=== PATIENT | female | born 1985 | race Caucasian/White ===

== ENCOUNTER 2017-10-11 01:44 | Emergency (ER) | payer MEDICAID, SELFPAY ==
[2017-10-11 01:48] VITALS: BP 111/76; PULSE 69; RESP 16; TEMP 36.8; O2SAT 100; BMI 38.1
--- NOTE | 2017-10-11 02:08 | ED.DCSUM_ITS ---
- ER Visit Summary Date of Service: 10/11/17 Chief Complaint: [] Dental pain History of Present Illness: The patient is a 31 F [] planing of worsening dental pain for the last 2-3 months. Denies fevers. Physical Examination: [] HEENT: Reveals dental caries without obvious abscess. There is tenderness on the front central incisors. Remainder of exam is unremarkable. Test Results: [] None. Emergency Department Course and Treatment: [] Patient given penicillin orally in the emergency department for her concern for possible dental infection. No obvious abscess is identified. Patient was given Ultram 50 mg #8 for analgesia until she can see her dentist. Treatment Plan: [] Outpatient prescriptions for penicillin and Ultram. Dental follow-up. Disposition: [] Discharge, stable Impression: [] Odontalgia Dental caries This note was generated with [employer] dictation software. It may contain incorrect words, spelling, and punctuation that were not noted in review of the chart prior to signing ED Disposition - Plan for ED Patient: Chief Complaint: Dental Referrals: Rayna Loera [Primary Care Provider] -
--- NOTE | 2017-10-11 02:08 | ED.DEP ---
ED Disposition - Plan for ED Patient: Disposition: Home or Assisted Living Chief Complaint: Dental Instructions: ED Tooth Pain Prescriptions: traMADol [Ultram (G)] 50 mg PO Q6H PRN PRN #8 tab PRN Reason: Pain Penicillin V Potassium 500 mg PO 4X/DAY #40 tab Referrals: Rayna Loera [Primary Care Provider] -
[2017-10-11 02:24] VITALS: RESP 16
[2017-10-11] MEDS: Penicillin Vk 250 MG Tablet 500 MG PO (02:24)
== END 2017-10-11 02:25 | disposition home or self-care (01) ==
LOC: ED 02:16
PROVIDERS: Emergency Provider Emergency Medicine; Family Provider Family Medicine
DX: K08.89 Other specified disorders of teeth and supporting structures (principal); K02.9 Dental caries, unspecified; J45.909 Unspecified asthma, uncomplicated; K21.9 Gastro-esophageal reflux disease without esophagitis; Z79.899 Other long term (current) drug therapy; Z72.0 Tobacco use
CPT/HCPCS: 99283

== ENCOUNTER 2017-11-05 12:04 | Emergency (ER) | payer MEDICAID, SELFPAY ==
[2017-11-05 12:04] VITALS: BP 131/71; PULSE 90; RESP 16; TEMP 36.5; O2SAT 97; BMI 38.0
--- NOTE | 2017-11-05 12:13 | CT_ITS ---
STUDY: CT ABDOMEN AND PELVIS WITHOUT CONTRAST REASON FOR EXAM: Female, 31 years old. Abdominal pain. RADIATION DOSAGE (If Supplied By Facility): CTDIvol = ( 22.12 ) mGy, DLP = ( 1072.20 ) mGycm TECHNIQUE: Transaxial images were obtained from the dome of the diaphragm to the symphysis pubis without oral contrast, and without intravenous contrast. Sagittal and coronal images were reconstructed. Individualized dose optimization techniques were used for this CT. COMPARISON: None. FINDINGS: The visualized lung bases are unremarkable. The visualized portions of the heart are within normal limits. Normal liver. Normal gallbladder and extrahepatic biliary system. Normal spleen. Normal pancreas. Normal bilateral adrenal glands. Normal right kidney. Normal left kidney. There is a small hiatal hernia. Normal small intestine. Normal colon. The appendix is visualized and appears normal. Normal abdominal aorta. Normal inferior vena cava. There is borderline retroperitoneal lymphadenopathy with enlarged nodes no greater than 10mm in the short axis diameter. Normal urinary bladder. Findings suggestive of a 3.1 cm x 2.7 cm left ovarian cyst. Normal abdominal wall. Small bilateral benign appearing inguinal lymph nodes. Normal osseous structures. CT/Abdomen/Pelvis without Cont IMPRESSION: Findings suggestive of a 3.1 cm x 2.7 cm left ovarian cyst. Electronically Signed: Dustin Murphy MD at 13:31 EDT Tel [phone], Service support ,
[2017-11-05 12:32] LABS: Bacteria 0 SEEN /hpf (None Seen); Mucous, Urine 0 SEEN /hpf (<or=2+); Red Blood Cells-Urine 0 SEEN /hpf (0-5); White Blood Cells 0 SEEN /hpf (0-5)
[2017-11-05] MEDS: 0.9% Normal Saline 1,000 ML 125 ML IV (12:33)
[2017-11-05 12:34] LABS: Color, Urine Yellow (Yellow); Glucose, Dipstick Normal (Normal); Ketone-Dipstick Negative (Negative); Leukocyte Esterase-Dipstick 25 /ul (Negative); Nitrite-Dipstick Negative (Negative); Occult Blood-Urine 10 /ul (Negative); Protein-Dipstick Negative (Negative); Specific Gravity, Urine 1.005 (1.002-1.030); Urine Bilirubin Dipstick Negative (Negative); Urine Clarity Clear (Clear); Urine Urobilinogen Normal (Normal)
[2017-11-05 12:36] LABS: Absolute Lymphocyte Count 2.87 X10^3/ul (0.83-4.51); Absolute Neutrophil Count 6.6 X10^3/uL (2.0-7.7); Basophil# 0.02 X10^3/uL; Basophil% 0.2 % (0-1); Eosinophil# 0.09 X10^3/uL; Eosinophils% 0.9 % (0-5); Hemoglobin 13.6 g/dl (12.0-15.0); Lymphocyte # 2.87 X10^3/ul (4.0); Lymphocyte % 27.9 % (19-41); Mean Corp Hgb Conc 33.2 g/gl (32-36); Mean Corpuscular Hgb 30.7 pg (27.0-32.0); Mean Corpuscular Volume 92.6 fL (81-99); Mean Platelet Vol. 10.8 fl (6.2-12.0); Monocyte# 0.65 X10^3/uL; Monocyte% 6.3 % (0-10); Neutrophil # 6.62 X10^3/uL (2.7-7.7); Neutrophil % 64.5 % (47-70); POSITIVE COUNT NO; POSITIVE DIFFERENTIAL NO; POSITIVE MORPHOLOGY NO; Platelet Count 257 K/mm3 (150-450); RBC Distribution Width CV 12.3 % (11.6-14.6); RBC Distribution Width SD 41.8 fl (35.1-43.9); Red Blood Count 4.43 M/mm3 (4.2-5.4); White Blood Count 10.3 K/mm3 (4.4-11.0)
[2017-11-05 12:40] LABS: Squamous Epithelial Cells - UA 0-5 SEEN /hpf (5-10)
[2017-11-05 12:52] LABS: ALB/GLOB Ratio 0.8 RATIO (0.9-2.4); AST(SGOT) 8 U/L (15-37); Alanine Aminotransfer ALT/SGPT 15 U/L (13-56); Albumin, Serum 3.3 g/dL (3.2-5.0); Alkaline Phosphatase 54 U/L (45-117); Anion Gap 4 (5-15); BUN 5 mg/dL (7-18); BUN/Creat Ratio 6.4 RATIO (10-20); Calcium,Total 8.6 mg/dL (8.5-10.1); Chloride 108 mmol/L (98-107); Creatinine, Serum 0.78 mg/dL (0.55-1.02); EST Glomerular Filtration Rate 92 mL/min (>60); Est Glom Filt Rate - Afr Amer 111 mL/min (>60); Estimated Creatinine Clearance 80.31 ml/min; Globulin 3.9 g/dL (2.2-4.2); Glucose 109 mg/dL (74-106); Lipase 76 U/L (73-393); Potassium 4.2 mmol/L (3.5-5.1); Protein, Total 7.2 g/dL (6.4-8.2); Sodium Level 139 mmol/L (136-145)
[2017-11-05 12:58] LABS: Pregnancy, Serum, hCG Quali. NEGATIVE Negative (0-9 Nonpreg)
--- NOTE | 2017-11-05 13:57 | ED.VISSUMM ---
- ER Visit Summary Date of Service: 11/05/17 Chief Complaint: [Abdominal pain] History of Present Illness: The patient is a 31 F [presents to the emergency department complaint of abdominal pain that started around 10 PM last night. Patient rates her pain currently as a 5 out of 10. Patient's had nausea but no vomiting denies any diarrhea. Denies any blood in her stool or black tarry stool. Patient's last bowel movement was last night. Her last menstrual period was 2 weeks ago. Food does not seem to affect her pain at all. Patient states that she has felt very hot all night last night. Patient denies any chest pain or shortness of breath. Patient does have a history of COPD and asthma.] Physical Examination: [HEENT-PERRLA, EOMI. Cranial nerves II through XII grossly intact. TMs clear. Mucous membranes moist. No adenopathy. Cardiovascular-regular rate and rhythm without murmur or ectopy Lungs-clear to auscultation, chest wall stable without crepitus or subcu emphysema Abdomen-normoactive bowel sounds, soft. Patient has some mild diffuse tenderness to the right upper quadrant and right lower quadrant as well as the left upper quadrant. Patient has some mild tenderness over left lower quadrant. There is no rebound, rigidity, or perineal signs. Extremities-intact ?4, normal range of motion, normal pulses, atraumatic] Test Results: [CBC with differential obtained was normal. Chemistries were normal. LFTs were normal. Lipase was 76. Urinalysis was normal. HCG was negative. CT scan of the abdomen and pelvis without contrast obtained showed a 3.1 cm x 2.7 cm left ovarian cyst otherwise she was noted to have a normal appendix and gallbladder and nothing else significant.] Emergency Department Course and Treatment: [Patient did not anything for pain in the emergency department.] Treatment Plan: [Patient will be given a prescription for [place] for pain and advised to follow-up with her primary care physician 3-5 days.] Disposition: [Discharged to home in stable condition. Patient advised to return if worsening pain, fever, vomiting, or condition should worsen in any way.] Impression: [Abdominal pain Left ovarian cyst] This note was generated with [employer] dictation software. It may contain incorrect words, spelling, and punctuation that were not noted in review of the chart prior to signing ED Disposition - Plan for ED Patient: Chief Complaint: Abd Pain Referrals: Rayna Loera [Primary Care Provider] -
--- NOTE | 2017-11-05 14:01 | DCINST.ED_ITS ---
ED Disposition - Plan for ED Patient: Chief Complaint: Abd Pain Instructions: ED Abdominal Pain Unkn Cause, ED Cyst Ovarian Prescriptions: Hydrocodone Bitart/Apap 5-325 [[place] 5MG-325MG] 1 tab PO Q4H PRN PRN 2 Days #10 tab PRN Reason: Pain Referrals: Rayna Loera [Primary Care Provider] - 3-5 Days
[2017-11-05 14:02] VITALS: BP 121/90; PULSE 75; RESP 15; O2SAT 94
== END 2017-11-05 14:07 | disposition home or self-care (01) ==
PROVIDERS: Emergency Provider Emergency Medicine; Family Provider Family Medicine
DX: N83.202 Unspecified ovarian cyst, left side (principal); R10.32 Left lower quadrant pain; R61 Generalized hyperhidrosis; J44.9 Chronic obstructive pulmonary disease, unspecified; Z72.0 Tobacco use
CPT/HCPCS: 74176; 80053; 81001; 83690; 84703; 85025; 96360; 99282

== ENCOUNTER 2017-12-16 20:26 | Emergency (ER) | payer MEDICAID, SELFPAY ==
[2017-12-16 20:26] VITALS: BP 131/74; PULSE 106; RESP 14; TEMP 35.7; O2SAT 94; BMI 36.1
--- NOTE | 2017-12-16 20:38 | ED.VISSUMM ---
- ER Visit Summary Date of Service: 12/16/17 Chief Complaint: Back pain History of Present Illness: The patient is a 32 F presents with lumbar back pain that radiates into her thoracic back with bending forward. It started 2 days ago when she was moving heavy boxes. She is moving into a new home and has been doing a lot of lifting, bending, and moving of furniture. She does not recall any specific direct trauma and she did not fall but it did start while she was lifting things. She denies bowel or bladder dysfunction. Denies groin paresthesias. Denies fever or chills. Denies lower extremity weakness or headache. It is worse with bending forward and better when laying flat. It is currently mild in severity. Physical Examination: She has paraspinal lumbar tenderness bilaterally but no midline spinal tenderness, erythema, or fluctuance. She has normal strength and sensation in both lower extremities. Negative Babinski's. No clonus. Minimal lower thoracic paraspinal tenderness but no bony tenderness anywhere. Painless range of motion of her cervical spine. Neurologic exam is completely normal. She can walk without difficulty. Test Results: None performed Emergency Department Course and Treatment: She was medicated with naproxen and Flexeril here. The pain seems muscular skeletal in nature and is easily reproducible on exam. She has no midline tenderness, erythema, or fluctuance. No evidence of cauda equina syndrome or paraspinal/epidural abscess. Neurologic exam is normal. I do not feel an emergent MRI is indicated Treatment Plan: He will be prescribed a Medrol Dosepak, naproxen, and Flexeril at home. She will follow-up with her doctor and return here if worse. Disposition: Home stable condition Impression: Initial encounter lumbar strain This note was generated with [employer] dictation software. It may contain incorrect words, spelling, and punctuation that were not noted in review of the chart prior to signing ED Disposition - Plan for ED Patient: Chief Complaint: Back Instructions: ED Low Back Pain Injury Prescriptions: MethylPREDNISolone DosePak [Medrol DosePak] 4 mg PO UD #1 box Naproxen [Naprosyn] 500 mg PO BID PRN #20 tablet Cyclobenzaprine [Flexeril] 10 mg PO TID PRN #20 tablet PRN Reason: Muscle Spasm Referrals: Rayna Loera [Primary Care Provider] -
[2017-12-16 21:07] VITALS: BP 138/60; PULSE 78; RESP 16; O2SAT 96
== END 2017-12-16 21:08 | disposition home or self-care (01) ==
PROVIDERS: Emergency Provider Emergency Medicine; Family Provider Family Medicine
DX: S39.012A Strain of muscle, fascia and tendon of lower back, initial encounter (principal); X58.XXXA Exposure to other specified factors, initial encounter; Y93.9 Activity, unspecified; Y92.9 Unspecified place or not applicable; Z72.0 Tobacco use
CPT/HCPCS: 99283

== ENCOUNTER 2017-12-29 09:54 | Emergency (ER) | payer MEDICAID, SELFPAY ==
[2017-12-29 09:55] VITALS: BP 126/79; PULSE 100; RESP 18; TEMP 37.1; O2SAT 97; BMI 35.1
--- NOTE | 2017-12-29 10:13 | ED.VISSUMM ---
- ER Visit Summary Date of Service: 12/29/17 Chief Complaint: Constipation History of Present Illness: The patient is a [address] Loera at [facility]. She reports that she has not had a bowel movement for 2 or 3 days. Typically she goes daily. States that yesterday she took 2 stool softeners and drank approximately 1/5 of a bottle of magnesium citrate without relief. Patient reports that she has an aching upper abdominal pain is 9 out of 10 at worst and 710 currently. Is worsened by nothing relieved by remaining still. She has had nausea without vomiting. She denies any dysuria or frequency. Her last menstrual period was 3 weeks ago. Physical Examination: Vitals: Stable. Afebrile. General: Well-nourished and well-developed. Head: Normocephalic atraumatic. Neck: Supple, no lymphadenopathy. No JVD. Nontender. Cardiovascular: Regular rate and rhythm. No murmurs. Respiratory: No respiratory distress. Clear to auscultation bilaterally. Abdominal: Soft, minimal epigastric tenderness to palpation, nondistended, normal bowel sounds. No guarding, rebound, or peritoneal signs. Back: Nontender. Extremities: Nontender, no edema. Skin: Normal color, no rash. Neurologic: Alert and oriented ?3. Cranial nerves II through XII are intact. Normal strength and sensation. Psych: Normal affect. Emergency Department Course and Treatment: I had a prolonged discussion the patient about constipation causes and treatment. She has refused a enema. Treatment Plan: Patient will be discharged instructions to complete her bottle of magnesium citrate. Return to emergency department or follow with her primary care physician in 1-2 days if she has not had a bowel movement or for any other concerns. Disposition: To home in improved and stable condition. Impression: 1. Constipation. This note was generated with [employer] dictation software. It may contain incorrect words, spelling, and punctuation that were not noted in review of the chart prior to signing ED Disposition - Plan for ED Patient: Chief Complaint: Constipation Instructions: ED Constipation Referrals: Rayna Loera [Primary Care Provider] - 1-2 Days if not improving
--- NOTE | 2017-12-29 10:16 | ED.DCSUM_ITS ---
- ER Visit Summary Date of Service: 12/29/17 Chief Complaint: Constipation History of Present Illness: The patient is a [address] Loera at [facility]. She reports that she has not had a bowel movement for 2 or 3 days. Typically she goes daily. States that yesterday she took 2 stool softeners and drank approximately 1/5 of a bottle of magnesium citrate without relief. Patient reports that she has an aching upper abdominal pain is 9 out of 10 at worst and 710 currently. Is worsened by nothing relieved by remaining still. She has had nausea without vomiting. She denies any dysuria or frequency. Her last menstrual period was 3 weeks ago. Physical Examination: Vitals: Stable. Afebrile. General: Well-nourished and well-developed. Head: Normocephalic atraumatic. Neck: Supple, no lymphadenopathy. No JVD. Nontender. Cardiovascular: Regular rate and rhythm. No murmurs. Respiratory: No respiratory distress. Clear to auscultation bilaterally. Abdominal: Soft, minimal epigastric tenderness to palpation, nondistended, normal bowel sounds. No guarding, rebound, or peritoneal signs. Back: Nontender. Extremities: Nontender, no edema. Skin: Normal color, no rash. Neurologic: Alert and oriented ?3. Cranial nerves II through XII are intact. Normal strength and sensation. Psych: Normal affect. Emergency Department Course and Treatment: I had a prolonged discussion the patient about constipation causes and treatment. She has refused a enema. Treatment Plan: Patient will be discharged instructions to complete her bottle of magnesium citrate. Return to emergency department or follow with her primary care physician in 1-2 days if she has not had a bowel movement or for any other concerns. Disposition: To home in improved and stable condition. Impression: 1. Constipation. This note was generated with [employer] dictation software. It may contain incorrect words, spelling, and punctuation that were not noted in review of the chart prior to signing ED Disposition - Plan for ED Patient: Chief Complaint: Constipation Instructions: ED Constipation Referrals: Rayna Loera [Primary Care Provider] - 1-2 Days if not improving
--- NOTE | 2017-12-29 10:48 | ED.RN ---
1020: After Dr. Brito's examination, this RN was going in to room and PT was not in room. Checked both bathrooms and she was not there. Registration was asking for pt as well, PT not in room. Assessment not able to get done d/t PT leaving prior to discharge instructions. No orders placed by Dr. Brito.
== END 2017-12-29 10:30 | disposition home or self-care (01) ==
LOC: ED 10:21
PROVIDERS: Emergency Provider Emergency Medicine; Family Provider Family Medicine
DX: K59.00 Constipation, unspecified (principal); R11.0 Nausea; J44.9 Chronic obstructive pulmonary disease, unspecified; Z79.899 Other long term (current) drug therapy; F17.200 Nicotine dependence, unspecified, uncomplicated
CPT/HCPCS: 99282

== ENCOUNTER 2018-01-15 22:46 | Emergency (ER) | payer MEDICAID, SELFPAY ==
[2018-01-15 22:47] VITALS: BP 133/88; PULSE 87; RESP 16; TEMP 36.5; O2SAT 97; BMI 39.6
--- NOTE | 2018-01-15 23:17 | ED.VISSUMM ---
- ER Visit Summary Date of Service: 01/15/18 Chief Complaint: Left foot pain History of Present Illness: The patient is a 32 F presenting with left foot pain. Patient states she has been recently walking a lot. She does not currently have a car. She has been walking 1.5 miles to [place]. She has pain to the bottom of her left foot. She has taken ibuprofen at home. She denies any direct trauma to her foot. Denies other complaints. Physical Examination: Vitals are stable. Patient is afebrile. Alert no acute distress. HEENT exam is unremarkable. Lungs are clear and equal bilaterally. Heart is regular rate and rhythm. Extremities mild tenderness to the plantar surface of the left foot. No erythema or warmth. No swelling. Ankle is nontender. Skin is warm and dry. Remainder of exam is unremarkable. Emergency Department Course and Treatment: Ice pack was applied. Left foot and ankle x-ray are normal. She is given a prescription for Naprosyn. She is given a postop shoe. She is advised to follow-up with primary care physician. Advised to return to ED if worsening complaints. Disposition: Discharged home Impression: Left foot pain suspect plantar fasciitis This note was generated with [employer] dictation software. It may contain incorrect words, spelling, and punctuation that were not noted in review of the chart prior to signing ED Disposition - Plan for ED Patient: Disposition: Home or Assisted Living Chief Complaint: Lower Extremity Injury Instructions: ED Plantar Fasciitis Prescriptions: Naproxen [Naprosyn] 500 mg PO BID PRN #20 tablet Referrals: Rayna Loera [Primary Care Provider] -
--- NOTE | 2018-01-15 23:49 | ED.DEP ---
ED Disposition - Plan for ED Patient: Chief Complaint: Lower Extremity Injury Instructions: ED Plantar Fasciitis Prescriptions: Naproxen [Naprosyn] 500 mg PO BID PRN #20 tablet Referrals: Rayna Loera [Primary Care Provider] -
[2018-01-16 00:02] VITALS: BP 131/78; PULSE 79; RESP 18; O2SAT 99
== END 2018-01-16 00:03 | disposition home or self-care (01) ==
LOC: ED 23:37
PROVIDERS: Emergency Provider Emergency Medicine; Family Provider Family Medicine
DX: M25.572 Pain in left ankle and joints of left foot (principal); J44.9 Chronic obstructive pulmonary disease, unspecified; K21.9 Gastro-esophageal reflux disease without esophagitis; Z79.899 Other long term (current) drug therapy; Z72.0 Tobacco use
CPT/HCPCS: 73610; 73630; 99283

== ENCOUNTER 2018-02-26 20:18 | Emergency (ER) | payer MEDICAID, SELFPAY ==
[2018-02-26 20:18] VITALS: BP 120/84; PULSE 97; RESP 14; TEMP 36.7; O2SAT 98; BMI 34.7
--- NOTE | 2018-02-26 20:34 | EKG12_ITS ---
Test Reason : PALPS Blood Pressure : / mmHG Vent. Rate : 096 BPM Atrial Rate : 096 BPM P-R Int : 168 ms QRS Dur : 074 ms QT Int : 336 ms P-R-T Axes : 046 029 044 degrees QTc Int : 424 ms Normal sinus rhythm Normal ECG Confirmed by RODRIGO LY, HELLEN ([id number]), editorial assistant FLAKITA DAHL ([id number] on 03/01/2018 12:25:38 PM Referred By: Confirmed By:HELLEN WALLACE MD
--- NOTE | 2018-02-26 20:40 | RAD_ITS ---
STUDY: X-RAY CHEST REASON FOR EXAM: Female, 32 years old. Chest pain and palpitations TECHNIQUE: Single AP portable view of the chest. # of Images: 1 COMPARISON: 04/01/2015 FINDINGS: The lungs are clear and expanded. There is no demonstrated pleural abnormality. Normal size heart. Normal mediastinum and joceline. Normal visualized pulmonary arteries. Normal visualized aortic arch and descending thoracic aorta. Normal visualized thoracic spine. Normal visualized ribs, clavicles, and shoulders. There is no demonstrated abnormality of the visualized soft tissue structures of the upper abdomen. RAD/Chest 1 View (Portable) IMPRESSION: Normal x-ray examination of the chest. Electronically Signed: Walker Huerta DO at 20:51 EDT Tel , Service support ,
--- NOTE | 2018-02-26 20:51 | ED.RN ---
NO OLD EKGS IN MUSE.
[2018-02-26 21:09] LABS: Absolute Lymphocyte Count 3.47 X10^3/ul (0.83-4.51); Absolute Neutrophil Count 9.6 X10^3/uL (2.0-7.7); Basophil# 0.02 X10^3/uL; Basophil% 0.1 % (0-1); Eosinophil# 0.07 X10^3/uL; Eosinophils% 0.5 % (0-5); Hematocrit 40.2 % (37-47); Hemoglobin 13.4 g/dl (12.0-15.0); Lymphocyte # 3.47 X10^3/ul (4.0); Lymphocyte % 24.8 % (19-41); Mean Corp Hgb Conc 33.3 g/gl (32-36); Mean Corpuscular Hgb 31.2 pg (27.0-32.0); Mean Corpuscular Volume 93.5 fL (81-99); Mean Platelet Vol. 11.3 fl (6.2-12.0); Monocyte% 5.7 % (0-10); Neutrophil # 9.61 X10^3/uL (2.7-7.7); Neutrophil % 68.7 % (47-70); Platelet Count 231 K/mm3 (150-450); RBC Distribution Width CV 12.7 % (11.6-14.6)
[2018-02-26 21:10] LABS: POSITIVE COUNT NO; POSITIVE DIFFERENTIAL NO; POSITIVE MORPHOLOGY NO
[2018-02-26 21:12] LABS: Anion Gap 7 (5-15); BUN 6 mg/dL (7-18); BUN/Creat Ratio 9.2 RATIO (10-20); Calcium,Total 8.7 mg/dL (8.5-10.1); Chloride 108 mmol/L (98-107); Creatinine, Serum 0.65 mg/dL (0.55-1.02); EST Glomerular Filtration Rate 114 mL/min (>60); Est Glom Filt Rate - Afr Amer 138 mL/min (>60); Glucose 142 mg/dL (74-106); Potassium 3.7 mmol/L (3.5-5.1); Sodium Level 138 mmol/L (136-145)
[2018-02-26 21:20] LABS: Pregnancy, Serum, hCG Quali. NEGATIVE Negative (0-9 Nonpreg)
[2018-02-26 22:00] VITALS: BP 93/54; PULSE 75; RESP 14; O2SAT 96
--- NOTE | 2018-02-26 22:02 | NURSING ---
PT ARRIVES STATING SHE FEELS HER HEART IS ACTING WEIRD. STATES SOMETIMES IT FEELS FAST AND SOMETIMES IT FEELS SLOW. DENIES CP, SOB, NAUSEA, ARM PAIN, JAW PAIN.
--- NOTE | 2018-02-26 22:19 | ED.VISSUMM ---
- ER Visit Summary Date of Service: 02/26/18 Chief Complaint: Palpitations History of Present Illness: The patient is a 32 F who presents with palpitations. This began yesterday. She has no chest pain or shortness of breath. No fevers vomiting or diarrhea. She does note that she has had a URI-like illness for about a month with nasal congestion and cough. She has been taking some [id number] decongestants. She denies any illicit drug use. She denies heavy caffeine use. Physical Examination: Afebrile vitals normal Moist mucous membranes Heart regular rate and rhythm Lungs are clear Abdomen soft Alert Test Results: EKG shows normal sinus rhythm at a rate of 96. Chest x-ray normal. Labs notable for white blood cell count 14.0 otherwise normal. Troponin is negative. is negative. Emergency Department Course and Treatment: Patient is resting comfortably at the time my examination. EKG laboratory studies and chest x-ray are all normal. I advised this may be medication related from the [id number] decongestants she has been taking. She was advised to drink plenty of fluids. She was instructed on specific signs and symptoms to monitor for. She understands to return for new or worsening symptoms and will otherwise follow-up as an outpatient was discharged home. Treatment Plan: [] Disposition: Discharge Impression: Palpitations This note was generated with [employer] dictation software. It may contain incorrect words, spelling, and punctuation that were not noted in review of the chart prior to signing ED Disposition - Plan for ED Patient: Chief Complaint: Palpitations Referrals: Alana Loera MD [Primary Care Provider] -
--- NOTE | 2018-02-26 22:21 | ED.DEP ---
ED Disposition - Plan for ED Patient: Chief Complaint: Palpitations Instructions: ED Palpitations Referrals: Alana Loera MD [Primary Care Provider] - Yumiko Hernandez DO [STAFF PHYSICIAN] -
== END 2018-02-26 22:37 | disposition home or self-care (01) ==
PROVIDERS: Emergency Provider Emergency Medicine; Family Provider Family Medicine; PCP Family Medicine
DX: R00.2 Palpitations (principal); R09.81 Nasal congestion; R05 Cough; J44.9 Chronic obstructive pulmonary disease, unspecified; K21.9 Gastro-esophageal reflux disease without esophagitis; Z72.0 Tobacco use
CPT/HCPCS: 71045; 80048; 84484; 84703; 85025; 93005; 99284; A4216

== ENCOUNTER 2018-02-27 10:29 | Emergency (ER) | payer MEDICAID, SELFPAY ==
[2018-02-27 10:31] VITALS: BP 132/82; PULSE 96; RESP 15; TEMP 36.3; BMI 34.2
--- NOTE | 2018-02-27 10:42 | ED.DCSUM_ITS ---
- ER Visit Summary Date of Service: 02/27/18 Chief Complaint: Right eye drainage and crusting History of Present Illness: The patient is a 32 F with waxing and waning URI symptoms for the past 1 month. Patient states for the past 2 mornings she is woken up with crusting to her right eye. She does have some mild right eye irritation. Physical Examination: Vital signs unremarkable. Head neck examination reveals no eyelid edema or erythema. She has minimal injection to the medial portion of her right eye. Pupils equal and reactive. Extraocular movements fully intact. TMs are clear bilaterally. Posterior pharynx examination is unremarkable. Remainder of exam is normal. Test Results: [] Emergency Department Course and Treatment: Discussed with patient that conjunctivitis can be viral, bacterial, or allergic in nature. At this time she will be given gentamicin eyedrops. She is to continue these for 24 hours after her symptoms are improved. Treatment Plan: [] Disposition: Discharge Impression: Conjunctivitis right eye This note was generated with [employer] dictation software. It may contain incorrect words, spelling, and punctuation that were not noted in review of the chart prior to signing ED Disposition - Plan for ED Patient: Chief Complaint: Eye Problem Referrals: Alana Loera MD [Primary Care Provider] -
--- NOTE | 2018-02-27 10:42 | ED.DEP ---
ED Disposition - Plan for ED Patient: Disposition: Home or Assisted Living Chief Complaint: Eye Problem Instructions: ED Conjunctivitis Nonspecific Referrals: Alana Loera MD [Primary Care Provider] - Additional Instructions: Gentamicin eye drops - 1 drop to affected eye 4x daily until symptoms resolved for 24 hours.
[2018-02-27] MEDS: Gentamicin Sulfate 1 OPTH.BTL 2 DRP RIGHT EYE (11:02)
== END 2018-02-27 11:06 | disposition home or self-care (01) ==
LOC: ED 10:54
PROVIDERS: Emergency Provider Emergency Medicine
DX: H10.9 Unspecified conjunctivitis (principal); J44.9 Chronic obstructive pulmonary disease, unspecified; K21.9 Gastro-esophageal reflux disease without esophagitis; F41.9 Anxiety disorder, unspecified; F32.9 Major depressive disorder, single episode, unspecified; Z79.899 Other long term (current) drug therapy; Z72.0 Tobacco use
CPT/HCPCS: 99282

== ENCOUNTER 2018-02-28 13:31 | Emergency (ER) | payer MEDICAID, SELFPAY ==
[2018-02-28 13:32] VITALS: BP 140/95; PULSE 120; RESP 16; TEMP 36.3; O2SAT 95; BMI 34.2
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
[2018-02-28 15:16] VITALS: BP 129/84; PULSE 76; RESP 16; O2SAT 97
== END 2018-02-28 15:17 | disposition home or self-care (01) ==
PROVIDERS: Emergency Provider Emergency Medicine
DX: S32.10XA Unspecified fracture of sacrum, initial encounter for closed fracture (principal); M79.602 Pain in left arm; M25.512 Pain in left shoulder; Y04.8XXA Assault by other bodily force, initial encounter; Y93.9 Activity, unspecified; Y92.9 Unspecified place or not applicable; J44.9 Chronic obstructive pulmonary disease, unspecified; K21.9 Gastro-esophageal reflux disease without esophagitis; Z79.899 Other long term (current) drug therapy; F17.200 Nicotine dependence, unspecified, uncomplicated
CPT/HCPCS: 72220; 99282

== ENCOUNTER 2018-03-08 17:35 | Emergency (ER) | payer MEDICAID, SELFPAY ==
[2018-03-08 17:35] VITALS: BP 140/85; PULSE 87; RESP 18; TEMP 36.5; O2SAT 96; BMI 34.5
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
[2018-03-08] MEDS: HYDROcodone Bitartrate/Apap 5/325 Tablet PO (17:54)
--- NOTE | 2018-03-08 18:08 | RAD_ITS ---
STUDY: X-RAY - THORACIC SPINE REASON FOR EXAM: Female, 32 years old. Fell last week and fractured tailbone. Fell again and Thursday increasing pain radiating to the upper back. TECHNIQUE: view(s) of the thoracic spine were obtained. COMPARISON: None. FINDINGS: Normal kyphosis of the thoracic spine. There is no substantial scoliosis. Normal thoracic vertebrae and endplates. Normal disc space heights. There is no evidence of acute fracture or loss of vertebral axial height. The soft tissue structures are unremarkable. RAD/Thoracic Spine 2 Views IMPRESSION: Normal x-ray examination of the thoracic spine. Electronically Signed: Shmuel Denny DO at 18:27 EDT Tel [phone], Service support ,
--- NOTE | 2018-03-08 18:08 | RAD_ITS ---
STUDY: X-RAY - LUMBAR SPINE REASON FOR EXAM: Female, 32 years old. Fell last week and fractured tailbone. Fell again Thursday. Increasing pain in the coccyx radiating to the upper back. TECHNIQUE: 3 view(s) of the lumbar spine were obtained. COMPARISON: None FINDINGS: Normal lumbar lordosis. There is no substantial scoliosis. There is a normal alignment of the vertebrae. Normal vertebral bodies and endplates. Normal disc space heights. There is no acute fracture, dislocation or destructive osseous pathology. The coccyx is not included. The soft tissue structures are unremarkable. RAD/Lumbar Spine 2 or 3 Views IMPRESSION: Normal x-ray examination of the lumbar spine. Electronically Signed: Shmuel Denny DO at 18:26 EDT Tel [phone], Service support ,
--- NOTE | 2018-03-08 18:08 | RAD_ITS ---
STUDY: X-RAY - SACRUM/COCCYX REASON FOR EXAM: Female, 32 years old. Fell last week and fractured tailbone. Fell again Thursday with increasing pain radiating into the upper back. TECHNIQUE: 3 view(s) of the sacrum and coccyx were obtained. COMPARISON: Sacrum and coccyx, February 28, 2018. FINDINGS: Normal bilateral sacroiliac joints. Again seen is the step off of the distal sacrum consistent with a fracture noted prior study. There is no new fracture. The presacral soft tissue structures are unremarkable. RAD/Sacrum-Coccyx min 2 Views IMPRESSION: No change from February 28, 2018. Electronically Signed: Shmuel Denny DO at 18:29 EDT Tel [phone], Service support ,
--- NOTE | 2018-03-08 19:35 | ED.DEP ---
ED Disposition - Plan for ED Patient: Disposition: Home or Assisted Living Chief Complaint: Back Instructions: ED Low Back Pain Injury Prescriptions: Hydrocodone Bitart/Apap 5-325 [[place] 5MG-325MG] 1 tab PO Q6H PRN PRN 2 Days #8 tab PRN Reason: Pain Ibuprofen 600 mg PO Q6H PRN PRN #30 tab PRN Reason: Pain Referrals: Care Physician,No Primary [Primary Care Provider] - Guillaume Mcintosh MD [STAFF PHYSICIAN] - As soon as possible Additional Instructions: You had no new fractures on your x-ray. Use ibuprofen as needed for mild to moderate pain and you may use the [place] for severe pain. Please call the primary care doctor on this paperwork or the doctor of your choice to establish care and for follow-up. If you have any worsening of your condition or any new concerning symptoms, please return immediately to the emergency department for another evaluation.
== END 2018-03-08 19:52 | disposition home or self-care (01) ==
PROVIDERS: Emergency Provider Emergency Medicine
DX: S32.10XD Unspecified fracture of sacrum, subsequent encounter for fracture with routine healing (principal); Y09 Assault by unspecified means; M54.5 Low back pain; W01.0XXA Fall on same level from slipping, tripping and stumbling without subsequent striking against object, initial encounter; Y93.9 Activity, unspecified; Y92.9 Unspecified place or not applicable; Z72.0 Tobacco use
CPT/HCPCS: 72070; 72100; 72220; 99283; J7030

== ENCOUNTER 2018-03-13 07:55 | Emergency (ER) | payer MEDICAID, SELFPAY ==
[2018-03-13 07:56] VITALS: BP 94/63; PULSE 86; RESP 19; TEMP 36.6; O2SAT 98; BMI 34.0
--- NOTE | 2018-03-13 08:09 | RAD_ITS ---
STUDY: X-RAY CHEST REASON FOR EXAM: Female, 32 years old. Mid chest pain TECHNIQUE: Single frontal view COMPARISON: February 26, 2018 FINDINGS: The lungs are clear and expanded. There is no demonstrated pleural abnormality. Normal size heart. Normal mediastinum and joceline. Normal visualized pulmonary arteries. Normal visualized aortic arch and descending thoracic aorta. Normal visualized thoracic spine. Normal visualized ribs, clavicles, and shoulders. There is no demonstrated abnormality of the visualized soft tissue structures of the upper abdomen. RAD/Chest 1 View (Portable) IMPRESSION: Normal x-ray examination of the chest. Electronically Signed: Kulwant Humphries DO at 8:32 EDT Tel [phone], Service support ,
--- NOTE | 2018-03-13 08:09 | EKG12_ITS ---
Test Reason : CP Blood Pressure : / mmHG Vent. Rate : 083 BPM Atrial Rate : 083 BPM P-R Int : 176 ms QRS Dur : 080 ms QT Int : 364 ms P-R-T Axes : 043 015 033 degrees QTc Int : 427 ms Normal sinus rhythm Normal ECG Confirmed by NAZARIO LY, AIDEN ([id number]), manager editorial TALITA PARKER ([id number]) on 03/15/2018 3:25:15 PM Referred By: JOHN Confirmed By:AIDEN LANGE MD
[2018-03-13 08:27] LABS: Absolute Lymphocyte Count 4.45 X10^3/ul (0.83-4.51); Absolute Neutrophil Count 9.2 X10^3/uL (2.0-7.7); Basophil# 0.03 X10^3/uL; Basophil% 0.2 % (0-1); Hematocrit 39.2 % (37-47); Lymphocyte # 4.45 X10^3/ul (4.0); Lymphocyte % 29.9 % (19-41); Mean Corp Hgb Conc 33.2 g/gl (32-36); Mean Corpuscular Hgb 31.3 pg (27.0-32.0); Mean Corpuscular Volume 94.2 fL (81-99); Mean Platelet Vol. 11.7 fl (6.2-12.0); Monocyte# 0.89 X10^3/uL; Neutrophil # 9.17 X10^3/uL (2.7-7.7); Neutrophil % 61.7 % (47-70); Platelet Count 218 K/mm3 (150-450); RBC Distribution Width CV 12.5 % (11.6-14.6); RBC Distribution Width SD 42.5 fl (35.1-43.9); Red Blood Count 4.16 M/mm3 (4.2-5.4); White Blood Count 14.9 K/mm3 (4.4-11.0)
[2018-03-13] MEDS: Mag Hydrox/Al Hydrox/Simeth 30 ML UDC PO (08:30)
[2018-03-13] MEDS: 0.9% Normal Saline 1,000 ML 150 ML IV (08:30)
[2018-03-13 08:31] LABS: POSITIVE COUNT NO; POSITIVE DIFFERENTIAL NO; POSITIVE MORPHOLOGY NO
--- NOTE | 2018-03-13 08:34 | CT_ITS ---
STUDY: CTA CHEST REASON FOR EXAM: Female, 32 years old. Sternal chest pain x6 hours. History of COPD, asthma, meth addiction clean since 02/20/2018. RADIATION DOSAGE (If Supplied By Facility): CTDIvol = ( 13.70 ) mGy, DLP = ( 583.59 ) mGycm TECHNIQUE: The examination was performed with the intravenous administration of 75ML ml of Isovue 370 contrast material. Post-processing of the angiographic images was performed, with multiplanar reformation and MIP (maximum intensity projection) reconstruction. Individualized dose optimization techniques were used for this CT. COMPARISON: None. FINDINGS: Normal enhancement of the main pulmonary artery and right and left pulmonary arteries. Normal enhancement of the bilateral peripheral pulmonary arteries. There is no demonstrated pulmonary embolism. Strick artifacts along the right lateral wall of the ascending aorta. No obvious aneurysm. There is no demonstrated aortic dissection. Normal heart and pericardium. Normal mediastinum. Normal hilar regions. Normal visualized trachea and bronchi. The lungs are well inflated. Minimal posterior subpleural infiltrates in the left lower lobe. No suspicious pulmonary nodules. Minimal groundglass infiltrates in the right posterior lung base. Normal pleura. Normal chest wall structures. Normal osseous structures. Normal visualized upper abdomen. CT/CTA Chest W/WO Contrast IMPRESSION: 1. No CTA evidence of pulmonary thromboemboli or thoracic aortic dissection. 2. Limited CTA of the ascending aorta due to extensive streak artifacts in the right lateral wall. 3. Minimal groundglass infiltrates in the right posterior lung base. 4. Minimal posterior subpleural infiltrates in the left lower lobe. 5. No CT evidence of COPD, centrilobular cysts, paraseptal cysts, blebs or bullous emphysema. Electronically Signed: Aristides Roberts MD at 9:25 EDT , Service support ,
[2018-03-13 08:47] LABS: ALB/GLOB Ratio 0.8 RATIO (0.9-2.4); AST(SGOT) 8 U/L (15-37); Alanine Aminotransfer ALT/SGPT 19 U/L (13-56); Albumin, Serum 3.1 g/dL (3.2-5.0); Alkaline Phosphatase 68 U/L (45-117); Anion Gap 8 (5-15); BUN 13 mg/dL (7-18); BUN/Creat Ratio 16.8 RATIO (10-20); Calcium,Total 8.4 mg/dL (8.5-10.1); Chloride 106 mmol/L (98-107); Creatinine, Serum 0.78 mg/dL (0.55-1.02); EST Glomerular Filtration Rate 93 mL/min (>60); Est Glom Filt Rate - Afr Amer 112 mL/min (>60); Estimated Creatinine Clearance 79.58 ml/min; Globulin 3.8 g/dL (2.2-4.2); Glucose 124 mg/dL (74-106); Lipase 77 U/L (73-393); Potassium 3.8 mmol/L (3.5-5.1); Protein, Total 6.9 g/dL (6.4-8.2); Sodium Level 138 mmol/L (136-145)
--- NOTE | 2018-03-13 09:41 | ED.VISSUMM ---
- ER Visit Summary Date of Service: 03/13/18 Chief Complaint: [Chest pain] History of Present Illness: The patient is a 32 F [presents the emergency department complaint of chest pain that started this morning around 4 AM which woke her up. Patient states that she then took a hot shower and that seemed to come to resolve the pain however after laying down again for about an hour and a half the pain came back. Patient presents via EMS for evaluation. Patient describes a sharp pain is also aching and radiates from the center of her chest to her back. Patient did take her Nexium and her Pepcid this morning as she does have a history of GERD and the pain felt somewhat like that. Patient also with history of COPD and asthma. Patient states she has had a cough off and on for several months as well as a runny nose. She denies any fevers. She denies recent travel or surgery. No family history of heart disease at a young age other than her sister who after her developed a cardiomyopathy.] Physical Examination: [HEENT-PERRLA, EOMI. Cranial nerves II through XII grossly intact. TMs clear. Mucous membranes moist. No adenopathy. Cardiovascular-regular rate and rhythm without murmur or ectopy Lungs-clear to auscultation, chest wall stable without crepitus or subcu emphysema Abdomen-normoactive bowel sounds, soft. Patient has some mild tenderness over the epigastric region that seems to somewhat reproduce her pain. There is no rebound, rigidity, or perineal signs. Extremities-intact ?4, normal range of motion, normal pulses, atraumatic] Test Results: [EKG obtained on arrival shows sinus rhythm with a ventricular rate of 83 bpm with no acute ST segment changes. CBC with differential showed a slightly elevated white count of 14.9, heme globin 13, hematocrit 39, platelets 218. Chemistries unremarkable. Liver enzymes were normal. Lipase was 77. Troponin was less than 0.015. D-dimer was elevated 0.50. Chest x-ray was normal. CTA of the chest obtained showed no evidence of PE or dissection. Patient was noted to have minimal infiltrate in the right posterior base as well as the left lower lobe.] Emergency Department Course and Treatment: [Patient initially was given aspirin as well as a GI cocktail which resolved her pain. Patient was given a dose of Zithromax 500 mg p.o.] Treatment Plan: [Patient will be treated with Zithromax. Patient will receive referral to primary care physician branch operations specialist for no doc for follow-up in 3-5 days. At this point I do not feel her chest pain is cardiac and certainly she has no significant risk factors for heart disease. Her CELENA risk score is 0. I suspect her chest pain was likely GERD.] Disposition: [Discharged home in stable condition. Patient to return if condition should worsen anyway.] Impression: [Chest pain-suspect GERD Pneumonia] This note was generated with [employer] dictation software. It may contain incorrect words, spelling, and punctuation that were not noted in review of the chart prior to signing ED Disposition - Plan for ED Patient: Chief Complaint: Chest Pain Referrals: Care Physician,No Primary [Primary Care Provider] -
--- NOTE | 2018-03-13 09:44 | ED.DEP ---
ED Disposition - Plan for ED Patient: Chief Complaint: Chest Pain Instructions: ED Chest Pain NonCardiac, ED GERD Prescriptions: Azithromycin [Zithromax] 250 mg PO DAILY #4 tab Referrals: Care Physician,No Primary [Primary Care Provider] - Virgil Wadsworth DO [NON CLINICAL AFFILIATE] - 5-7 Days
[2018-03-13] MEDS: Azithromycin 250 MG Tablet 500 MG PO (09:47)
[2018-03-13 10:15] VITALS: BP 106/76; PULSE 74; RESP 18; O2SAT 97
== END 2018-03-13 10:17 | disposition home or self-care (01) ==
LOC: ED 08:20
PROVIDERS: Emergency Provider Emergency Medicine
DX: J18.9 Pneumonia, unspecified organism (principal); R07.9 Chest pain, unspecified; R79.89 Other specified abnormal findings of blood chemistry; J44.9 Chronic obstructive pulmonary disease, unspecified; K21.9 Gastro-esophageal reflux disease without esophagitis; Z79.899 Other long term (current) drug therapy; Z72.0 Tobacco use
CPT/HCPCS: 71045; 71275; 80053; 83690; 84484; 85025; 85379; 93005; 96360; 99284; 99285; J7030; Q9967; A4216

== ENCOUNTER 2018-03-13 19:24 | Emergency (ER) | payer MEDICAID, SELFPAY ==
[2018-03-13 19:25] VITALS: BP 152/86; PULSE 84; RESP 18; TEMP 36.7; O2SAT 97; BMI 34.0
--- NOTE | 2018-03-13 19:42 | EKG12_ITS ---
Test Reason : PAIN OTHER Blood Pressure : / mmHG Vent. Rate : 080 BPM Atrial Rate : 080 BPM P-R Int : 182 ms QRS Dur : 080 ms QT Int : 380 ms P-R-T Axes : 064 062 059 degrees QTc Int : 438 ms Normal sinus rhythm with sinus arrhythmia Normal ECG Confirmed by NAZARIO LY, AIDEN ([id number]), editorial assistant TALITA PARKER ([id number]) on 03/15/2018 3:46:42 PM Referred By: DC Confirmed By:AIDEN LANGE MD
--- NOTE | 2018-03-13 19:56 | ED.DCSUM_ITS ---
- ER Visit Summary Date of Service: 03/13/18 Chief Complaint: Acid reflux History of Present Illness: The patient is a 32 F presenting with acid reflux. She states she was seen in the ED earlier today for similar complaints. She was given a GI cocktail with improvement. She states later in the day she drank a milkshake and her symptoms returned. She takes Nexium and Pepcid at home. She states earlier today she was started on Zithromax for pneumonia. She denies fever or cough. Denies other complaints. Physical Examination: Vitals are stable. Patient is afebrile. Alert no acute distress. HEENT exam is unremarkable. Neck is supple. Lungs are clear and equal bilaterally. Heart is regular rate and rhythm. Abdomen is soft mild epigastric tenderness with no rebound or guarding Extremities are unremarkable. Skin is warm and dry. No focal neurologic deficit. Remainder of exam is unremarkable. Emergency Department Course and Treatment: Patient was given a GI cocktail with improvement. Lipase is 59. Troponin is negative. EKG is sinus rate of 80 with no acute changes. Patient is feeling improved and resting comfortably on reevaluation. She is given a prescription for sucralfate. Advised to follow-up with primary care physician. Advised return to ED if worsening complaints. Disposition: Discharge home Impression: GERD This note was generated with [employer] dictation software. It may contain incorrect words, spelling, and punctuation that were not noted in review of the chart prior to signing ED Disposition - Plan for ED Patient: Chief Complaint: Other, Pain/Inj Instructions: ED GERD Prescriptions: Sucralfate [Carafate] 1 gm PO 4X/DAY #20 tablet Referrals: Virgil Wadsworth DO [NON CLINICAL AFFILIATE] -
[2018-03-13 20:37] VITALS: O2SAT 96
[2018-03-13] MEDS: Mag Hydrox/Al Hydrox/Simeth 30 ML UDC PO (20:37)
[2018-03-13 21:03] LABS: Lipase 59 U/L (73-393)
--- NOTE | 2018-03-13 21:32 | ED.DEP ---
ED Disposition - Plan for ED Patient: Chief Complaint: Other, Pain/Inj Instructions: ED GERD Prescriptions: Sucralfate [Carafate] 1 gm PO 4X/DAY #20 tablet Referrals: Virgil Wadsworth DO [NON CLINICAL AFFILIATE] -
[2018-03-13 22:15] VITALS: BP 142/76; PULSE 85; RESP 16; O2SAT 98
== END 2018-03-13 22:15 | disposition home or self-care (01) ==
LOC: ED 19:58
PROVIDERS: Emergency Provider Emergency Medicine
DX: K21.9 Gastro-esophageal reflux disease without esophagitis (principal); J18.9 Pneumonia, unspecified organism; Z72.0 Tobacco use
CPT/HCPCS: 83690; 84484; 93005; 99284; A4216

== ENCOUNTER 2018-03-15 22:03 | Emergency (ER) | payer MEDICAID, SELFPAY ==
[2018-03-15 22:05] VITALS: BP 134/89; PULSE 112; RESP 16; TEMP 36.1; O2SAT 97; BMI 34.1
--- NOTE | 2018-03-15 22:07 | EKG12_ITS ---
Test Reason : CP Blood Pressure : / mmHG Vent. Rate : 101 BPM Atrial Rate : 101 BPM P-R Int : 172 ms QRS Dur : 070 ms QT Int : 346 ms P-R-T Axes : 043 017 025 degrees QTc Int : 448 ms Sinus tachycardia Otherwise normal ECG Confirmed by NAZARIO LY, AIDEN ([id number]), senior technical editor TALITA PARKER ([id number]) on 03/18/2018 3:32:21 PM Referred By: LEYDI Confirmed By:AIDEN LANGE MD
--- NOTE | 2018-03-15 22:50 | RAD_ITS ---
STUDY: X-RAY CHEST REASON FOR EXAM: Female, 32 years old. Cough and back pain TECHNIQUE: AP portable COMPARISON: March 13, 2018. FINDINGS: The lungs are clear and expanded. There is no demonstrated pleural abnormality. Normal size heart. Normal mediastinum and joceline. Normal visualized pulmonary arteries. Normal visualized aortic arch and descending thoracic aorta. Dorsal spine demonstrates minor dextroscoliosis or splinting secondary to muscle spasm. Normal visualized ribs, clavicles, and shoulders. There is no demonstrated abnormality of the visualized soft tissue structures of the upper abdomen. RAD/Chest 1 View (Portable) IMPRESSION: No acute cardiopulmonary pathology Electronically Signed: Vivek Alvarez MD at 23:10 EST , Service support ,
[2018-03-15 23:02] LABS: Absolute Lymphocyte Count 2.71 X10^3/ul (0.83-4.51); Absolute Neutrophil Count 15.2 X10^3/uL (2.0-7.7); Basophil# 0.02 X10^3/uL; Basophil% 0.1 % (0-1); Eosinophil# 0.02 X10^3/uL; Eosinophils% 0.1 % (0-5); Hematocrit 41.1 % (37-47); Hemoglobin 13.6 g/dl (12.0-15.0); Lymphocyte # 2.71 X10^3/ul (4.0); Lymphocyte % 13.9 % (19-41); Mean Corp Hgb Conc 33.1 g/gl (32-36); Mean Corpuscular Hgb 31.2 pg (27.0-32.0); Mean Corpuscular Volume 94.3 fL (81-99); Mean Platelet Vol. 11.4 fl (6.2-12.0); Monocyte# 1.48 X10^3/uL; Monocyte% 7.6 % (0-10); Neutrophil # 15.18 X10^3/uL (2.7-7.7); Neutrophil % 78.1 % (47-70); Platelet Count 233 K/mm3 (150-450); RBC Distribution Width CV 12.5 % (11.6-14.6); RBC Distribution Width SD 42.7 fl (35.1-43.9); Red Blood Count 4.36 M/mm3 (4.2-5.4); White Blood Count 19.5 K/mm3 (4.4-11.0)
[2018-03-15 23:03] LABS: POSITIVE COUNT NO; POSITIVE DIFFERENTIAL NO; POSITIVE MORPHOLOGY NO
[2018-03-15 23:12] VITALS: O2SAT 97
[2018-03-15 23:19] LABS: Anion Gap 11 (5-15); BUN 8 mg/dL (7-18); BUN/Creat Ratio 12.7 RATIO (10-20); Chloride 101 mmol/L (98-107); Creatinine, Serum 0.63 mg/dL (0.55-1.02); EST Glomerular Filtration Rate 117 mL/min (>60); Est Glom Filt Rate - Afr Amer 142 mL/min (>60); Estimated Creatinine Clearance 98.53 ml/min; Glucose 112 mg/dL (74-106); Sodium Level 136 mmol/L (136-145)
--- NOTE | 2018-03-15 23:46 | ED.DCSUM_ITS ---
- ER Visit Summary Date of Service: 03/15/18 Chief Complaint: Chest pain History of Present Illness: The patient is a 32 F presenting for evaluation secondary chest pain. Patient reports that about 3 days ago she was diagnosed as having pneumonia. She was discharged on a course of a azithromycin. Patient states that she has had continuous chest pain that is located on the right side of her chest. Is worse with breathing or coughing. Been associated with nausea and vomiting. She denies the presence of fevers. Patient states that the pain has simply been persistent since she was discharged from the emergency department she was concerned about this. Physical Examination: Vital signs are within normal limits, patient is afebrile. General: Patient is well-nourished well-developed and in no acute distress. Head: Normocephalic, atraumatic Eyes: Pupils equal round and reactive bilaterally, extra occular motion intact bialterally ENT: Moist mucous membranes Neck: Supple, no lymphadenopathy, no JVD, no meningismus CVS: Heart regular rate and rhythm, no murmurs, rubs or gallops, radial pulses 2+ bilaterally Resp: Respirations nondistressed, lung sounds clear bilaterally Abdomen: Soft, nontender, nondistended, no palpable masses, normal bowel sounds Back: Nontender Extremities: Nontender, atraumatic, active full range of motion, no peripheral edema Skin: warm, no rashes, no petechia Neuro: Alert and oriented x 4, CN 2-12 intact, no lateralizing neurological defecits Psyc: Normal affect Test Results: EKG demonstrates sinus rhythm of [address] segments normal T waves. CBC shows a leukocytosis of 19.5 slightly upward trending from prior. Chemistry is normal, troponin is negative. PA and lateral chest x-ray normal per radiology. Emergency Department Course and Treatment: Patient presented secondary to pleuritic chest pain in setting of pneumonia. I reviewed the patient's records, she did have pneumonia that was actually diagnosed by CT angiogram a couple of days ago with no evidence of pulmonary emboli. Patient's workup is negative other than the fact she has a increase in her white blood cell count, but she has stable normal vital signs normal oxygenation she ambulated in the emergency department her pulse ox remained 98% heart rate only went up to 110. She likely is just having pain secondary to her infection. Patient will be given Tessalon and Naprosyn for treatment of her symptoms, instructed to continue her course of azithromycin. Disposition: Discharge Impression: 1. Chest pain with h/o pneumonia This note was generated with [employer] dictation software. It may contain incorrect words, spelling, and punctuation that were not noted in review of the chart prior to signing ED Disposition - Plan for ED Patient: Disposition: Home or Assisted Living Chief Complaint: Chest Pain Diagnosis: Pneumonia Instructions: ED Pneumonia Adult Prescriptions: Benzonatate [Tessalon Perle] 200 mg PO TID PRN PRN #20 cap PRN Reason: Cough Naproxen [Naprosyn] 500 mg PO BID PRN #20 tab Referrals: Alana Loera MD [NON-STAFF] - 3-5 Days
[2018-03-16 00:52] VITALS: PULSE 88; PULSE 92; RESP 14; O2SAT 96; O2SAT 98
[2018-03-16] MEDS: Benzonatate 100 MG Capsule 200 MG PO (00:59)
[2018-03-16] MEDS: Ketorolac 15 MG/ML Vial IV (00:59)
== END 2018-03-16 01:03 | disposition home or self-care (01) ==
LOC: ED 03-16 00:04
PROVIDERS: Emergency Provider Emergency Medicine
DX: R07.9 Chest pain, unspecified (principal); Z87.01 Personal history of pneumonia (recurrent); R11.2 Nausea with vomiting, unspecified; R05 Cough; J45.909 Unspecified asthma, uncomplicated; K21.9 Gastro-esophageal reflux disease without esophagitis; Z79.899 Other long term (current) drug therapy; Z72.0 Tobacco use
CPT/HCPCS: 71045; 80048; 84484; 85025; 93005; 96374; 99285

== ENCOUNTER 2018-04-03 12:35 | Emergency (ER) | payer MEDICAID, SELFPAY ==
[2018-04-03 12:36] VITALS: BP 125/81; PULSE 104; RESP 15; TEMP 36.9; O2SAT 96; BMI 33.4
--- NOTE | 2018-04-03 13:11 | ED.VISSUMM ---
- ER Visit Summary Date of Service: 04/03/18 Chief Complaint: Infection History of Present Illness: The patient is a 32 F who is postop day 5 from a laparoscopic cholecystectomy. The patient has been doing well but yesterday she noted some drainage from the umbilical site. No fevers or other associated symptoms. Physical Examination: Afebrile vital signs unremarkable. Heart regular. No respiratory distress. Abdomen soft and nontender. Abdominal inspection unremarkable except for postoperative changes. The site at her umbilicus shows some very mild pus. No bleeding. No redness or warmth. No tenderness, fluctuance or induration. Test Results: None indicated Emergency Department Course and Treatment: Patient possibly has an early skin infection. I paged Dr. Griffiths who was on-call for Dr. Plunkett. I have not heard back yet at the time of this dictation. I will start the patient on Keflex. There is no indication for imaging. I have no suspicion for deep infection, sepsis, or other complications. Patient has follow-up planned. Return for any new or worsening issues. Treatment Plan: As above Disposition: Discharge Impression: 1. Abdominal wall cellulitis This note was generated with [employer] dictation software. It may contain incorrect words, spelling, and punctuation that were not noted in review of the chart prior to signing ED Disposition - Plan for ED Patient: Chief Complaint: Wound Check Referrals: Alana Loera MD [Primary Care Provider] -
--- NOTE | 2018-04-03 13:13 | ED.DEP ---
ED Disposition - Plan for ED Patient: Chief Complaint: Wound Check Instructions: ED Wound Infec After Surgery Prescriptions: Cephalexin [Keflex] 500 mg PO Q6 #40 cap Referrals: Kodak Plunkett MD [STAFF PHYSICIAN] -
[2018-04-03 13:47] VITALS: BP 106/75; PULSE 91; RESP 17
== END 2018-04-03 14:03 | disposition home or self-care (01) ==
LOC: ED 13:12
PROVIDERS: Emergency Provider Emergency Medicine; Family Provider Family Medicine; PCP Family Medicine
DX: L03.311 Cellulitis of abdominal wall (principal); Z90.49 Acquired absence of other specified parts of digestive tract; J45.909 Unspecified asthma, uncomplicated; Z72.0 Tobacco use
CPT/HCPCS: 99282

== ENCOUNTER 2018-06-06 17:32 | Emergency (ER) | payer MEDICAID, SELFPAY ==
[2018-06-06 17:32] VITALS: BP 131/91; PULSE 111; RESP 16; TEMP 36.6; O2SAT 99; BMI 34.6
--- NOTE | 2018-06-06 17:52 | ED.DCSUM_ITS ---
- ER Visit Summary Date of Service: 06/06/18 Chief Complaint: Rash History of Present Illness: The patient is a 32 F who has a rash in the bilateral palms. It started about a week ago. It itches. No bleeding. She denies any new irritants such as soaps, lotions, shampoos or pets. Denies using any new gloves. She took nothing for it at home. Denies any sores in her mouth. Denies any lesions on her feet. Physical Examination: Vital signs reviewed. Skin exam reveals a rash to the palms of the hands bilaterally. It is excoriated. There is no petechia or purpura. Test Results: None performed Emergency Department Course and Treatment: She appears to have an atopic rash. I will give her hydrocortisone cream and Atarax. Will follow up with her PCP Treatment Plan: [] Disposition: Discharge Impression: Dermatitis This note was generated with [employer] dictation software. It may contain incorrect words, spelling, and punctuation that were not noted in review of the chart prior to signing ED Disposition - Plan for ED Patient: Chief Complaint: Itching Referrals: Alana Loera MD [Primary Care Provider] -
--- NOTE | 2018-06-06 17:52 | ED.DEP ---
ED Disposition - Plan for ED Patient: Disposition: Home or Assisted Living Chief Complaint: Itching Instructions: ED Dermatitis Non Specific Rash Prescriptions: hydrOXYzine tablet [Atarax tablet] 10 mg PO TID PRN PRN #20 tab PRN Reason: Itching Hydrocortisone 1% Crm [Hytone] 1 applic TOPICAL BID #1 tube Referrals: Alana Loera MD [Primary Care Provider] -
== END 2018-06-06 18:07 | disposition home or self-care (01) ==
LOC: ED 18:01
PROVIDERS: Emergency Provider Emergency Medicine; Family Provider Family Medicine; PCP Family Medicine
DX: L30.9 Dermatitis, unspecified (principal); J45.909 Unspecified asthma, uncomplicated; K21.9 Gastro-esophageal reflux disease without esophagitis; F32.9 Major depressive disorder, single episode, unspecified; Z79.899 Other long term (current) drug therapy; Z72.0 Tobacco use
CPT/HCPCS: 99282

== ENCOUNTER 2018-06-07 22:30 | Emergency (ER) | payer MEDICAID, SELFPAY ==
[2018-06-06 17:32] VITALS: BMI 34.6
[2018-06-07 22:31] VITALS: BP 127/96; PULSE 111; RESP 18; TEMP 36.7; O2SAT 95
[2018-06-07 22:32] VITALS: PULSE 111; RESP 18; TEMP 36.7; O2SAT 95; BMI 34.1
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
[2018-06-07] MEDS: Acetaminophen 500 MG Tablet 1000 MG PO (23:13)
[2018-06-07 23:56] VITALS: BP 134/79; PULSE 89; RESP 22; O2SAT 97
--- NOTE | 2018-06-07 23:57 | ED.RN ---
THIS NURSE REVIEWED D/C INSTRUCTIONS WITH PT. PT VERBALIZED UNDERSTANDING OF INSTRUCTIONS. PT DENIES FURTHER NEEDS OR QUESTIONS AT THIS TIME. WOUNDS CLEANED. BANDAID PLACED ON WOUND UNDER LEFT EYE
== END 2018-06-08 00:28 | disposition home or self-care (01) ==
PROVIDERS: Emergency Provider Emergency Medicine; Family Provider Family Medicine; PCP Family Medicine
DX: S00.12XA Contusion of left eyelid and periocular area, initial encounter (principal); S00.81XA Abrasion of other part of head, initial encounter; H11.32 Conjunctival hemorrhage, left eye; S02.82XA Fracture of other specified skull and facial bones, left side, initial encounter for closed fracture; R40.2410 Glasgow coma scale score 13-15, unspecified time; Y04.2XXA Assault by strike against or bumped into by another person, initial encounter; Y93.9 Activity, unspecified; Y92.9 Unspecified place or not applicable; J44.9 Chronic obstructive pulmonary disease, unspecified; K21.9 Gastro-esophageal reflux disease without esophagitis; F32.9 Major depressive disorder, single episode, unspecified; F41.9 Anxiety disorder, unspecified; Z79.899 Other long term (current) drug therapy; Z72.0 Tobacco use
CPT/HCPCS: 70450; 70486; 99284

== ENCOUNTER 2018-07-05 11:45 | Day surgery (SDC) | payer MEDICAID, SELFPAY ==
[2018-07-01 10:17] VITALS: BMI 34.6
[2018-07-05] VITALS (11 sets, daily range): BP systolic 93–130; BP diastolic 65–88; PULSE 88–108; RESP 12–18; TEMP 36.3–37; O2SAT 92–100; BMI 34.7
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
[2018-07-05 12:26] LABS: Internal QC Validated? YES +Cl - CLEAR BKGD; Pregnancy, Urine Negative Negative
[2018-07-05 13:12] LABS: Hematocrit 44.1 % (37-47); Hemoglobin 14.3 g/dl (12.0-15.0); Mean Corp Hgb Conc 32.4 g/gl (32-36); Mean Corpuscular Hgb 30.5 pg (27.0-32.0); Mean Platelet Vol. 11.4 fl (6.2-12.0); Platelet Count 255 K/mm3 (150-450); RBC Distribution Width CV 13.6 % (11.6-14.6); Red Blood Count 4.69 M/mm3 (4.2-5.4); Scan Indicated on CBC? Y/N NO; White Blood Count 8.8 K/mm3 (4.4-11.0)
[2018-07-05 13:24] LABS: Anion Gap 6 (5-15); BUN 9 mg/dL (7-18); BUN/Creat Ratio 12.4 RATIO (10-20); Calcium,Total 8.6 mg/dL (8.5-10.1); Chloride 109 mmol/L (98-107); Creatinine, Serum 0.72 mg/dL (0.55-1.02); EST Glomerular Filtration Rate 100 mL/min (>60); Est Glom Filt Rate - Afr Amer 121 mL/min (>60); Estimated Creatinine Clearance 86.21 ml/min; Glucose 97 mg/dL (74-106); Potassium 4.2 mmol/L (3.5-5.1); Sodium Level 137 mmol/L (136-145)
[2018-07-05] MEDS: Neomycin/Polymyxin/Dexameth OINT 3.5GM OPTH.TUBE 1 APPLIC (14:30)
[2018-07-05] MEDS: Sodium/Calcium/Mag/Potassium 15 ML Bottle (14:41)
[2018-07-05] MEDS: Mupirocin Ointment 22gm Tube 1 APPLIC (15:41)
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
[2018-07-05] MEDS: 0.9% NaCl Peripheral Flush Adult/Peds IV (18:38)
[2018-07-05] MEDS: HYDROmorphone 1 MG/ML Syringe IV (18:38)
[2018-07-05] MEDS: Docusate Sodium 100 MG Capsule PO (22:07)
[2018-07-05] MEDS: MethylPREDNISolone 125 MG/2 ML Vial IV (22:07)
[2018-07-05] MEDS: Neomycin/Polymyxin/Dexameth OINT 3.5GM OPTH.TUBE OPHTHALMIC (22:07)
[2018-07-05] MEDS: Ondansetron 4 MG/2 ML Vial IV (22:43)
[2018-07-06 01:42] VITALS: BP 106/71; PULSE 96; RESP 16; TEMP 36.7; O2SAT 93
[2018-07-06] MEDS: oxyCODONE 5 MG Tablet 10 MG PO ×2 (01:46→14:11)
[2018-07-06] MEDS: Lactated Ringers 1,000 ML 60 ML IV (01:46)
[2018-07-06 05:38] VITALS: BP 109/73; PULSE 94; RESP 14; TEMP 36.5; O2SAT 995
[2018-07-06] MEDS: MethylPREDNISolone 125 MG/2 ML Vial IV ×2 (05:45→13:46)
[2018-07-06 06:17] LABS: Hematocrit 41.7 % (37-47); Hemoglobin 13.7 g/dl (12.0-15.0); Mean Corp Hgb Conc 32.9 g/gl (32-36); Mean Corpuscular Hgb 30.9 pg (27.0-32.0); Mean Corpuscular Volume 94.1 fL (81-99); Mean Platelet Vol. 11.4 fl (6.2-12.0); Platelet Count 226 K/mm3 (150-450); RBC Distribution Width CV 12.6 % (11.6-14.6); RBC Distribution Width SD 42.7 fl (35.1-43.9); Red Blood Count 4.43 M/mm3 (4.2-5.4); White Blood Count 14.8 K/mm3 (4.4-11.0)
[2018-07-06 06:22] LABS: Scan Indicated on CBC? Y/N NO
[2018-07-06 06:54] LABS: Anion Gap 10 (5-15); BUN 10 mg/dL (7-18); BUN/Creat Ratio 14.6 RATIO (10-20); Calcium,Total 8.5 mg/dL (8.5-10.1); Chloride 106 mmol/L (98-107); Creatinine, Serum 0.68 mg/dL (0.55-1.02); EST Glomerular Filtration Rate 107 mL/min (>60); Est Glom Filt Rate - Afr Amer 129 mL/min (>60); Estimated Creatinine Clearance 91.28 ml/min; Glucose 149 mg/dL (74-106); Potassium 4.6 mmol/L (3.5-5.1); Prealbumin 25.1 mg/dL (20.0-40.0); Sodium Level 138 mmol/L (136-145)
[2018-07-06] MEDS: Docusate Sodium 100 MG Capsule PO (09:13)
[2018-07-06] MEDS: Neomycin/Polymyxin/Dexameth OINT 3.5GM OPTH.TUBE OPHTHALMIC (09:13)
[2018-07-06 11:40] VITALS: BP 103/60; PULSE 99; RESP 16; TEMP 36.9; O2SAT 95
[2018-07-06 11:48] VITALS: O2SAT 95
--- NOTE | 2018-07-06 15:01 | PCM.PN.SRG ---
Subjective: Postop #1 Patient is resting comfortably. Denies any visual problems. - Physical Exam General: Alert, Oriented x3 HEENT: PERRLA, EOMI, - - mild periorbital swelling. Can open her eyelid. No evidence of ectropion. Oral: Moist Mucosa Neck: Supple Skin: Incision - dry and intact. No hematoma present. Neurological: Cranial nerves II-XII grossly intact Psych/Mental Status: Normal Affect, Appropriate Vital Signs Temp Pulse Resp BP Pulse Ox 98.4 F 99 16 103/60 95 07/06/18 11:40 07/06/18 11:40 07/06/18 11:40 07/06/18 11:40 07/06/18 11:48 Oxygen Flow Rate (L/min) 1 Oxygen Delivery Method Room Air Weight: 184 lb 1.376 oz Body Mass Index (BMI) 34.7 Intake and Output for Last 24 Hours 07/04/18 07/05/18 07/06/18 23:59 23:59 23:59 Intake Total 2764 / 2764 656 / 656 Output Total 50 / 50 200 / 200 Balance 2714 / 2714 456 / 456 Laboratory Tests Past 24 Hrs 07/06/18 07/06/18 05:48 05:48 WBC 14.8 H RBC 4.43 Hgb 13.7 Hct 41.7 MCV 94.1 MCH 30.9 MCHC 32.9 RDW 12.6 RDW Differential 42.7 Plt Count 226 MPV 11.4 Sodium 138 Potassium 4.6 Chloride 106 Carbon Dioxide 22.0 Anion Gap 10 BUN 10 Creatinine 0.68 Estim Creat Clear Calc 91.28 Est GFR (MDRD) Af Amer 129 Est GFR (MDRD) Non-Af 107 BUN/Creatinine Ratio 14.6 Glucose 149 H Calcium 8.5 Prealbumin 25.1 Medical Necessity - Tobacco Use Smoking Status: Current every day smoker Assessment/Plan All Active Problems (Last Updated 07/01/18 @ 10:12 by Sarahi Pugh) Fracture of orbital floor, blow-out, left, closed (Acute) No significant past medical history (Acute) 1. Left orbital floor blowout fracture. 2. Smoker. 3. s/p open treatment left orbital floor blowout fracture, periorbital approach, with Medpor Titanium Implant reconstruction (5 cm2). Incision is dry and intact. Mild swelling present. She denies any visual problems. EOMI. Tolerating po analgesia. Voided without difficulty after removing the gallegos. Prealbumin was 25.1. Encourage nutritional supplementation with protein to help the healing process. Discharge home today. Continue antibiotics at home. Wrote script for Cleocin for 7 days. Wrote scripts for Percocet for pain (50 tabs) and for Valium for spasm (10 tabs). Wrote scripts for Phenergan for nausea (30 tabs) and a refill and for Colace for constipation (60 tabs). Continue Maxitrol Ophthalmic ointment to left eye twice a day. Patient may shower tomorrow. Keep head elevated. Cold compresses as tolerated for facial and periorbital swelling. Followup office one week. Encouraged patient to stop smoking as it may have deleterious effects on wound healing.
--- NOTE | 2018-07-06 15:06 | PCM.DC ---
You will use the following diet at home:: No restrictions Discharge Activity: May Not Drive, May Shower - in one day., - - keep head elevated. no heavy lifting. May shower in (days): 1 May resume sexual activity in: 10-14 days Ice area for (Minutes): 5 - as needed for facial swelliing. Weight Bearing Status: Weight bearing as tolerated Lifting Restrictions: 10 lbs. Keep extremity elevated above heart level: - - keep head elevated. Call your doctor if your incision/area has: Continuous Slow Oozing, Sudden Increased Bleeding, Increased Pain/ Swelling, Increased Redness, Foul Smelling Discharge, Swelling at the incision site, - - visual problems Call your doctor if you observe: Fever of 101 or Higher, Coldness, Increased Pain, Shortness of breath, Chest pain, Calf discomfort, Uncontrolled pain Suture Line Care: - - apply antibiotic ointment to suture line daily. Cleanse incision/area with: - - may get incision wet in the shower in one day. Additional Instructions: Patient has tube of Maxitrol Ophthalmic ointment. She will apply to the left eye twice a day. Allergies/Adverse Reactions: Allergies latex Allergy (Verified 07/02/18 18:18) Rash Medications to take at Discharge Albuterol Sulfate [Ventolin Hfa] 1 - 2 puff INHALATION Q4H PRN 04/03/18 Mometasone/Formoterol [Dulera 200 Mcg/5 Mcg Inhaler] 2 puff IH BID PRN PRN 07/02/18 Bupropion HCl 150 mg PO DAILY 07/05/18 Esomeprazole Magnesium [Heartburn Treatment] 20 mg PO DAILY 07/05/18 Fluoxetine HCl 40 mg PO DAILY 07/05/18 Hydroxyzine Pamoate [Vistaril] 50 mg PO TID PRN PRN 07/05/18 Norgestimate-Ethinyl Estradiol [Mononessa 28 Tablet] 1 each PO DAILY 07/05/18 traZODone [Desyrel] 50 mg PO QHS PRN 07/05/18 Clindamycin HCl [Cleocin] 300 mg PO TID #21 cap 07/06/18 Diazepam [Valium] 5 mg PO BID PRN PRN 5 Days #10 tab 07/06/18 Docusate Sodium [Colace] 100 mg PO BID #60 cap 07/06/18 Oxycodone HCl/Acetaminophen [Percocet 5/325] 1 - 2 tab PO 4X/DAY PRN PRN 7 Days #50 tab 07/06/18 proMETHazine tablet [Phenergan tablet] 25 mg PO 4X/DAY PRN PRN #30 tab 07/06/18 The following prescriptions were given: Diazepam [Valium] 5 mg PO BID PRN PRN 5 Days #10 tab PRN Reason: Spasms Oxycodone HCl/Acetaminophen [Percocet 5/325] 1 - 2 tab PO 4X/DAY PRN PRN 7 Days #50 tab PRN Reason: Pain proMETHazine tablet [Phenergan tablet] 25 mg PO 4X/DAY PRN PRN #30 tab PRN Reason: NAUSEA/VOMITING Docusate Sodium [Colace] 100 mg PO BID #60 cap Clindamycin HCl [Cleocin] 300 mg PO TID #21 cap Primary Care Physician: Alana Loera MD [Primary Care Provider] - Test Results: Test results from this visit will be discussed in further detail at your follow-up appointment, if applicable. Please Follow Up With: Mundo Salter MD When: one week. call [phone] for appt. Proposed Discharge Date: 07/06/18
--- NOTE | 2018-07-06 15:10 | DCINST_ITS ---
You will use the following diet at home:: No restrictions Discharge Activity: May Not Drive, May Shower - in one day., - - keep head elev ated. no heavy lifting. May shower in (days): 1 May resume sexual activity in: 10-14 days Ice area for (Minutes): 5 - as needed for facial swelliing. Weight Bearing Status: Weight bearing as tolerated Lifting Restrictions: 10 lbs. Keep extremity elevated above heart level: - - keep head elevated. Call your doctor if your incision/area has: Continuous Slow Oozing, Sudden Increased Bleeding, Increased Pain/ Swelling, Increased Redness, Foul Smelling Discharge, Swelling at the incision site, - - visual problems Call your doctor if you observe: Fever of 101 or Higher, Coldness, Increased Pain, Shortness of breath, Chest pain, Calf discomfort, Uncontrolled pain Suture Line Care: - - apply antibiotic ointment to suture line daily. Cleanse incision/area with: - - may get incision wet in the shower in one day. Additional Instructions: Patient has tube of Maxitrol Ophthalmic ointment. She will apply to the left eye twice a day. Allergies/Adverse Reactions: Allergies latex Allergy (Verified 07/02/18 18:18) Rash Medications to take at Discharge Albuterol Sulfate [Ventolin Hfa] 1 - 2 puff INHALATION Q4H PRN 04/03/18 Mometasone/Formoterol [Dulera 200 Mcg/5 Mcg Inhaler] 2 puff IH BID PRN PRN 07/02/18 Bupropion HCl 150 mg PO DAILY 07/05/18 Esomeprazole Magnesium [Heartburn Treatment] 20 mg PO DAILY 07/05/18 Fluoxetine HCl 40 mg PO DAILY 07/05/18 Hydroxyzine Pamoate [Vistaril] 50 mg PO TID PRN PRN 07/05/18 Norgestimate-Ethinyl Estradiol [Mononessa 28 Tablet] 1 each PO DAILY 07/05/18 traZODone [Desyrel] 50 mg PO QHS PRN 07/05/18 Clindamycin HCl [Cleocin] 300 mg PO TID #21 cap 07/06/18 Diazepam [Valium] 5 mg PO BID PRN PRN 5 Days #10 tab 07/06/18 Docusate Sodium [Colace] 100 mg PO BID #60 cap 07/06/18 Oxycodone HCl/Acetaminophen [Percocet 5/325] 1 - 2 tab PO 4X/DAY PRN PRN 7 Days #50 tab 07/06/18 proMETHazine tablet [Phenergan tablet] 25 mg PO 4X/DAY PRN PRN #30 tab 07/06/18 The following prescriptions were given: Diazepam [Valium] 5 mg PO BID PRN PRN 5 Days #10 tab PRN Reason: Spasms Oxycodone HCl/Acetaminophen [Percocet 5/325] 1 - 2 tab PO 4X/DAY PRN PRN 7 Days #50 tab PRN Reason: Pain proMETHazine tablet [Phenergan tablet] 25 mg PO 4X/DAY PRN PRN #30 tab PRN Reason: NAUSEA/VOMITING Docusate Sodium [Colace] 100 mg PO BID #60 cap Clindamycin HCl [Cleocin] 300 mg PO TID #21 cap Primary Care Physician: Alana Loera MD [Primary Care Provider] - Test Results: Test results from this visit will be discussed in further detail at your follow- up appointment, if applicable. Please Follow Up With: Mundo Salter MD When: one week. call [phone] for appt. Proposed Discharge Date: 07/06/18
== END 2018-07-06 16:00 | disposition home or self-care (01) ==
LOC: SDC 11:45 → AC 11:46 → MS2 13:50
PROVIDERS: Anesthesiology; Family Provider Family Medicine; PCP Family Medicine; Referring Provider Surgery; Visit Provider Surgery
PROC: (CPT 21406; principal; 2018-07-05 13:25)
DX: S02.32XA Fracture of orbital floor, left side, initial encounter for closed fracture (principal); Y04.2XXA Assault by strike against or bumped into by another person, initial encounter; Y92.9 Unspecified place or not applicable; J44.9 Chronic obstructive pulmonary disease, unspecified; K21.9 Gastro-esophageal reflux disease without esophagitis; F32.9 Major depressive disorder, single episode, unspecified; F17.200 Nicotine dependence, unspecified, uncomplicated; R20.2 Paresthesia of skin; Z79.899 Other long term (current) drug therapy; F41.9 Anxiety disorder, unspecified
CPT/HCPCS: 21390; 36415; 80048; 81025; 84134; 85027; 99406; C1713; J7120; A4216; J2405

== ENCOUNTER → 2018-08-11 11:20 | Outpatient (CLI) | payer MEDICAID, SELFPAY ==
[2018-08-11 10:53] VITALS: BMI 34.7
--- NOTE | 2018-08-11 11:23 | RAD_ITS ---
STUDY: X-RAY - FACIAL BONES REASON FOR STUDY: Female, 32 years old. Status post left orbital fracture repair. Follow-up exam. TECHNIQUE: 3 view(s) of the facial bones. COMPARISON: 06/07/2018. FINDINGS: Normal bilateral frontozygomatic and zygomatic-temporal arches. There is a surgical mesh in the region of the left orbital floor. Normal bilateral orbits. Normal visualized nasal bones. Normal anterior nasal spine. The remaining visualized osseous structures are normal. There is opacification of the left maxillary sinus which could be due to sinusitis. RAD/Facial Bones min 3 Views IMPRESSION: Postoperative changes in the left orbit. Left maxillary sinus disease. Electronically Signed: Xavier Beltran MD at 9:01 EDT Tel , Service support ,
== END ==
PROVIDERS: Family Provider Family Medicine; PCP Family Medicine; Referring Provider Surgery; Visit Provider Surgery
DX: S02.32XA Fracture of orbital floor, left side, initial encounter for closed fracture (principal)
CPT/HCPCS: 70150

== ENCOUNTER 2019-01-10 11:36 | Emergency (ER) | payer MEDICAID, SELFPAY ==
[2018-08-11 10:53] VITALS: BMI 34.7
[2019-01-10 11:36] VITALS: BP 145/88; PULSE 97; RESP 17; TEMP 36.2; O2SAT 98; BMI 36.5
--- NOTE | 2019-01-10 13:19 | ED.DCSUM_ITS ---
History of Present Illness Chief Complaint: Abscess Detail of Chief Complaint: Tender swollen area Informant: Patient Onset: Weeks - 1 Context: Gradual Onset Timing: Continuous Quality: Sore Location: Left labia Current Severity: Moderate Maximum Severity: Moderate Worsened by: Walking, urinating past affected area Relieved by: Leaving it alone Associated Symptoms: No fevers or systemic symptoms or discharge Narrative: Patient initially had a pustule that she popped a week ago and got a small amount of pus out. She did not take care of it afterwards, and since then has been gradually swelling and get feeling worse, more painful. No spontaneous discharge anymore since then. Has had abscesses in her thighs before, not a diabetic. - Past Medical History (1) History of asthma Status: Chronic Past Medical History - Allergies and Home Meds Allergies/Adverse Reactions: Allergies latex Allergy (Verified 01/10/19 11:36) Rash Primary Care Physician: Alana Georges DO [Primary Care Provider] - Surgical History: noncontributory Smoking Status: Current every day smoker Drugs: None Review of Systems General: Denies: Chills, Fever, Sweats Gastrointestinal: Denies: Abdominal pain, Nausea, Vomiting, Diarrhea, Melena, Hematochezia Genitourinary: Reports: - - Left labia pain. Denies: Dysuria, Hematuria, Frequency Skin: Reports: Abscess - Possibly, Wounds Neurological: Denies: Headache, Weakness, Numbness Physical Exam Vital Signs/Narrative: Vital Signs Temp Pulse Resp BP Pulse Ox 01/10/19 11:36 97.2 F L 97 17 145/88 H 98 Inital Vital Signs reviewed: Yes General: Well nourished, Well developed, Obese, No Acute Distress - Well- appearing Head: Normocephalic, Atraumatic : - - Mildly erythematous tender left labia majora without abscess, pointing, fluctuance. No induration. The area is very small. There is no tenderness or abnormality of the labia minora, or palpable Bartholin's cyst/abscess. No lymphangitis or other lesions. Skin: Normal color, - - See above, genitourinary Neurological: Alert, Oriented x3, Cranial nerves II-XII grossly intact, Normal Strength, Normal Sensation, Normal Gait Psychological: Normal affect, Normal Mood Diagnostic/Tx/Re-eval - Medical Decision Making Reassured patient, this area is very small and there is no indication for incision and drainage right now. I will place her on antibiotics to see if that helps resolve it, if it worsens despite being on antibiotics I would return to the ER. She is comfortable with that plan, will start her on Bactrim given the propensity for this being MRSA. ED Disposition - Plan for ED Patient: Disposition: Home or Assisted Living Diagnosis: Cellulitis of labia majora Instructions: Cellulitis Prescriptions: Sulfamethoxazole/Trimethoprim [Bactrim Ds Tablet] 1 ea PO BID #14 tab Prescription Printed Referrals: Alana Georges DO [Primary Care Provider] - 1 Week if not improving (Or ER if worsening/growing despite antibiotic)
[2019-01-10] MEDS: Smz/Tmp Ds Tablet 1 TABLET PO (13:27)
== END 2019-01-10 13:27 | disposition home or self-care (01) ==
PROVIDERS: Emergency Provider Emergency Medicine; Family Provider Family Medicine; PCP Family Medicine
DX: N76.2 Acute vulvitis (principal); E66.9 Obesity, unspecified; J45.909 Unspecified asthma, uncomplicated; F17.200 Nicotine dependence, unspecified, uncomplicated
CPT/HCPCS: 99283

== ENCOUNTER 2019-03-27 17:43 | Emergency (ER) | payer MEDICAID, SELFPAY ==
[2019-03-27 17:43] VITALS: BP 142/88; PULSE 104; RESP 20; TEMP 36.6; O2SAT 96; BMI 38.7
--- NOTE | 2019-03-27 19:27 | ED.DCSUM_ITS ---
History of Present Illness Narrative: 33-year-old female presents with dental pain. States that 3 days ago she had 4 teeth removed from her maxilla. This was done at [facility]. States that she is been taking Motrin and Tylenol for pain. States that yesterday her pain became worse. She has a follow-up appointment in 9 days. Admits to flushing with the pain. Nuys any fever nausea vomiting. <Rolly Reed - Last Filed: 03/27/19 20:11> <Getachew Zuñiga - Last Filed: 03/27/19 20:24> Chief Complaint: Dental Past Medical History Surgical History: noncontributory Smoking Status: Current every day smoker <Rolly Reed - Last Filed: 03/27/19 20:11> <Getachew Zuñiga - Last Filed: 03/27/19 20:24> - Allergies and Home Meds Allergies/Adverse Reactions: Allergies latex Allergy (Verified 03/27/19 17:46) Rash Primary Care Physician: Alana Georges DO [Primary Care Provider] - Review of Systems General: Denies: Chills, Fever ENT: Reports: - - Dental pain. Denies: Bilateral ear pain, Left ear pain Respiratory: Denies: Dyspnea, Cough Gastrointestinal: Denies: Abdominal pain, Nausea <Rolly Reed - Last Filed: 03/27/19 20:11> Physical Exam Vital Signs/Narrative: Vital Signs Temp Pulse Resp BP Pulse Ox 03/27/19 17:43 97.8 F 104 H 20 H 142/88 H 96 General: Well nourished, Well developed Head: Normocephalic ENT: - - On the patient's right upper jawline it appears for teeth were removed. Sutures in place. No purulent drainage. No fluctuant abscess. No active bleeding. No sign of dry socket. Cardiovascular: Regular rate, Regular rhythm Respiratory: No distress <Rolly Reed - Last Filed: 03/27/19 20:11> Vital Signs/Narrative: Vital Signs Temp Pulse Resp BP Pulse Ox 03/27/19 20:14 62 15 108/77 98 03/27/19 17:43 97.8 F 104 H 20 H 142/88 H 96 <Getachew Zuñiga - Last Filed: 03/27/19 20:24> Diagnostic/Tx/Re-eval - Medical Decision Making Evaluated for dental pain. He had surgery. Surgical site looks well. No sign of purulent drainage or abscess. Initial plan was to give the patient short course of narcotic pain medication. However, patient is on naltrexone. Patient initially asked by attending physician for was taking naltrexone but denied it. When I asked her again if she was on it she said that she did take it for mood stabilization. States that she last filled it months ago. According to her [facility] this was last filled 3 days ago. Due to this she will not be given narcotics. Patient offered a dental block declined. Given naproxen for home. Instructed to call [facility] tomorrow morning to move up her appointment. Patient was in agreement with the plan and discharged home. <Rolly Reed - Last Filed: 03/27/19 20:11> - Medical Decision Making Seen and evaluated independently and in conjunction with resident physician. Agree with notes above unless documented otherwise. Patient having post extraction pain. Her maxilla gingiva has sutures intact, does not appear inflamed, erythematous, bleeding, or any other discharge. There is no sign of infection at this time. She was reassured. She seems she was really looking for antibiotics, we reassured that they do not appear to be indicated at this time, but we suggest he follow-up with her dentist if the pain persist. See above for reasons why we did not prescribe her controlled substance. She understood and was comfortable with that plan. <Getachew Zuñiga - Last Filed: 03/27/19 20:24> ED Disposition <Rolly Reed - Last Filed: 03/27/19 20:11> <Getachew Zuñiga - Last Filed: 03/27/19 20:24> - Plan for ED Patient: Disposition: Home or Assisted Living Diagnosis: Pain, dental Instructions: Dental Pain Prescriptions: Naproxen [Naprosyn] 500 mg PO BID PRN #20 tab Prescription Printed Referrals: Alana Georges DO [Primary Care Provider] -
[2019-03-27] MEDS: Naproxen 500 MG Tablet PO (20:13)
[2019-03-27 20:14] VITALS: BP 108/77; PULSE 62; RESP 15; O2SAT 98
== END 2019-03-27 20:15 | disposition home or self-care (01) ==
PROVIDERS: Emergency Provider Emergency Medicine; Family Provider Family Medicine; PCP Family Medicine
DX: K08.89 Other specified disorders of teeth and supporting structures (principal); F17.200 Nicotine dependence, unspecified, uncomplicated
CPT/HCPCS: 99284

== ENCOUNTER 2019-12-25 16:41 | Emergency (ER) | payer MEDICAID, SELFPAY ==
[2019-12-25 16:42] VITALS: BP 141/96; PULSE 109; RESP 16; TEMP 36.6; O2SAT 98; BMI 37.0
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
--- NOTE | 2019-12-25 18:02 | ED.DEP ---
ED Disposition - Plan for ED Patient: Instructions: ED ELBOW SPRAIN Referrals: Alana Georges DO [Primary Care Provider] -
== END 2019-12-25 18:06 | disposition home or self-care (01) ==
LOC: ED 17:03
PROVIDERS: Emergency Provider Emergency Medicine; PCP Family Medicine
DX: S50.311A Abrasion of right elbow, initial encounter (principal); X58.XXXA Exposure to other specified factors, initial encounter; Y93.9 Activity, unspecified; Y92.9 Unspecified place or not applicable; Y99.9 Unspecified external cause status; R20.2 Paresthesia of skin; J45.909 Unspecified asthma, uncomplicated; Z72.0 Tobacco use
CPT/HCPCS: 73080; 99282; A4216

== ENCOUNTER → 2020-02-14 09:50 | Outpatient (CLI) | payer MEDICAID, SELFPAY | PROVIDERS: PCP Family Medicine | DX: Z20.828 Contact with and (suspected) exposure to other viral communicable diseases (principal); J02.9 Acute pharyngitis, unspecified; R05 Cough; J44.9 Chronic obstructive pulmonary disease, unspecified | CPT/HCPCS: 87635; C9803; U0003 ==

== ENCOUNTER 2020-02-27 18:39 | Emergency (ER) | payer MEDICAID, SELFPAY ==
[2020-02-27 18:39] VITALS: BP 125/82; PULSE 98; RESP 16; RESP 18; TEMP 36.5; BMI 38.4
--- NOTE | 2020-02-27 18:44 | RAD_ITS ---
STUDY: X-RAY - RIGHT FOOT CLINICAL: Female, 34 years old. TWISTED RIGHT FOOT/ANKLE AROUND NOON TODAY, C/O INCREASED PAIN. TECHNIQUE: 2 view(s) of the foot. COMPARISON: None. FINDINGS: Normal talus, calcaneus, and tarsal bones. Normal visualized subtalar, talonavicular, calcaneocuboid, tarsal and tarsometatarsal articulations. Normal metatarsi. Normal metatarsophalangeal joint of the great toe. Normal tibial and fibular sesamoid bones. Normal interphalangeal joint of the great toe. Normal phalanges of the great toe. Normal second through fifth metatarsophalangeal joints. Normal interphalangeal joints and phalanges of the lesser toes. The soft tissue structures are unremarkable. RAD/Foot 2 Views IMPRESSION: Normal x-ray examination of the foot. Electronically Signed: Fany Dey MD at 19:24 EDT Tel , Service support ,
--- NOTE | 2020-02-27 18:50 | RAD_ITS ---
STUDY: X-RAY - RIGHT ANKLE REASON FOR EXAM: Female, 34 years old. TWISTED RIGHT FOOT/ANKLE AROUND NOON TODAY, C/O INCREASED PAIN. TECHNIQUE: 2 view(s) of the ankle. COMPARISON: None. FINDINGS: Normal visualized distal tibia and fibula. Normal medial and lateral malleoli. Normal tibiotalar articulation and ankle mortise. Normal visualized talus and calcaneus. The visualized subtalar, talonavicular, calcaneocuboid and tarsal articulations are normal. The soft tissue structures are unremarkable. RAD/Ankle 2 Views IMPRESSION: Normal x-ray examination of the ankle. Electronically Signed: James Arceo MD at 19:51 EDT , Service support ,
--- NOTE | 2020-02-27 19:17 | ED.VIS.GEN ---
History of Present Illness Chief Complaint: Lower Extremity Injury Informant: Patient Narrative: 34-year-old female with past medical history of anxiety presents with concern for right ankle pain. States that she tripped over the sidewalk and inverted her ankle approximately 6 hours ago. Increasing aching pain. Worse with movement. Denies any relieving factors. Denies any numbness or tingling. Denies any head injury or loss of consciousness. Past Medical History - Allergies and Home Meds Allergies/Adverse Reactions: Allergies latex Allergy (Verified 12/25/19 16:44) Rash Primary Care Physician: Alana Georges DO [Primary Care Provider] - Past Medical History: - - anxiety Surgical History: noncontributory Lives: With Family Smoking Status: Current every day smoker Alcohol: None Drugs: None Review of Systems General: Denies: Chills, Fever, Sweats Eyes: Denies: Visual changes - bilaterally, Diplopia ENT: Denies: Rhinorrhea, Sore throat Cardiovascular: Denies: Chest pain, Palpitations Respiratory: Denies: Dyspnea, Cough, Dyspnea on exertion Gastrointestinal: Denies: Abdominal pain, Nausea, Vomiting, Diarrhea, Melena, Hematochezia Genitourinary: Denies: Dysuria, Hematuria, Frequency Musculoskeletal: Reports: Arthralgias. Denies: Back pain, Extremity Pain Skin: Denies: Rash, Wounds Neurological: Denies: Headache, Weakness, Numbness Physical Exam Vital Signs/Narrative: Vital Signs Temp Pulse Resp BP 02/27/20 18:39 97.7 F L 98 18 125/82 H Inital Vital Signs reviewed: Yes General: Well nourished, Well developed, No Acute Distress Head: Normocephalic, Atraumatic Eyes: Perrl, EOMI ENT: Moist mucous membranes, No rhinorrhea Neck: Supple, Nontender Cardiovascular: Regular rate, Regular rhythm, No murmurs Respiratory: No distress, CTA bilaterally, Chest nontender Abdomen: Soft, Nontender, Nondistended, Normal bowel sounds Back: Nontender, Normal Inspection Extremities: - - TTP on the dorsal foot and lateral ankle. Skin: Normal color, No rash Neurological: Alert, Oriented x3, Cranial nerves II-XII grossly intact, Normal Strength, Normal Sensation Psychological: Normal affect, Normal Mood Diagnostic/Tx/Re-eval Clinical Impression(s) from Imaging Studies Foot X-Ray 02/27/20 18:44 IMPRESSION: Normal x-ray examination of the foot. Electronically Signed: Fany Dey MD at 19:24 EDT Tel , Service support , Ankle X-Ray 02/27/20 18:50 IMPRESSION: Normal x-ray examination of the ankle. Electronically Signed: James Arceo MD at 19:51 EDT , Service support , - Medical Decision Making She appears well nontoxic. Vital signs within normal limits. X-ray negative. Patient placed in Aircast and given crutches. Patient given intramuscular Toradol. Will be given Naprosyn for home and asked to return for new or worsening symptoms. Discharged home in stable condition. Impression: 1. Right ankle sprain ED Disposition - Plan for ED Patient: Disposition: Home or Assisted Living Instructions: ED Sprain Ankle Prescriptions: Naproxen [Naprosyn] 500 mg PO BID #14 tab Prescription Printed Referrals: Alana Georges DO [Primary Care Provider] - 2 Days
[2020-02-27] MEDS: Ketorolac 15 MG/ML Vial IM (19:22)
[2020-02-27 20:33] VITALS: RESP 16; O2SAT 98
== END 2020-02-27 20:15 | disposition home or self-care (01) ==
PROVIDERS: Emergency Provider Emergency Medicine; PCP Family Medicine
DX: S93.401A Sprain of unspecified ligament of right ankle, initial encounter (principal); W01.0XXA Fall on same level from slipping, tripping and stumbling without subsequent striking against object, initial encounter; Y92.480 Sidewalk as the place of occurrence of the external cause; F41.9 Anxiety disorder, unspecified; F17.200 Nicotine dependence, unspecified, uncomplicated; Z79.899 Other long term (current) drug therapy
CPT/HCPCS: 73600; 73620; 96372; 99284

== ENCOUNTER 2020-04-21 12:53 | Emergency (ER) | payer MEDICAID, SELFPAY ==
[2020-04-21 12:53] VITALS: BP 130/84; PULSE 109; RESP 18; TEMP 35.4; O2SAT 100; BMI 36.8
--- NOTE | 2020-04-21 13:08 | ED.VIS.GEN ---
History of Present Illness Informant: Patient Onset: Days Narrative: 34-year-old female presents with left labial abscess. She states she shaved and then developed a bump on the left labia 3 days ago. The area is swollen. No drainage. She states she had this a year ago and it had to be drained. She is not diabetic. Denies fevers, chills, nausea, vomiting, dysuria, frequency, or hematuria. <Yumiko Chandler - Last Filed: 04/21/20 13:08> <Dewey Eaton - Last Filed: 04/21/20 13:16> Chief Complaint: Abscess Past Medical History Past Medical History: - - asthma, PTSD Surgical History: noncontributory Smoking Status: Current every day smoker <Yumiko Chandler - Last Filed: 04/21/20 13:08> <Dewey Eaton - Last Filed: 04/21/20 13:16> - Allergies and Home Meds Allergies/Adverse Reactions: Allergies latex Allergy (Verified 04/21/20 12:53) Rash Primary Care Physician: Alana Georges DO [Primary Care Provider] - Review of Systems General: Denies: Chills, Fever, Sweats Eyes: Denies: Visual changes - bilaterally, Diplopia ENT: Denies: Rhinorrhea, Sore throat Cardiovascular: Denies: Chest pain, Palpitations Respiratory: Denies: Dyspnea, Cough, Dyspnea on exertion Gastrointestinal: Denies: Abdominal pain, Nausea, Vomiting, Diarrhea, Melena, Hematochezia Genitourinary: Denies: Dysuria, Hematuria, Frequency Musculoskeletal: Denies: Back pain, Extremity Pain Skin: Reports: Abscess. Denies: Rash, Wounds Neurological: Denies: Headache, Weakness, Numbness <Yumiko Chandler - Last Filed: 04/21/20 13:08> Physical Exam Vital Signs/Narrative: Vital Signs Temp Pulse Resp BP Pulse Ox 04/21/20 12:53 95.8 F L 109 H 18 130/84 H 100 General: Well nourished, Well developed, No Acute Distress Head: Normocephalic, Atraumatic Eyes: Perrl, EOMI ENT: Moist mucous membranes, No rhinorrhea Neck: Supple, Nontender Cardiovascular: Regular rate, Regular rhythm, No murmurs Respiratory: No distress, CTA bilaterally, Chest nontender Abdomen: Soft, Nontender, Nondistended, Normal bowel sounds : - - Normal external inspection. Small bump on left lower labia that is nontender. No erythema. Small palpable indurated area around bump, no fluctuance. No lesions or vesicles. Back: Nontender, Normal Inspection Extremities: Nontender, No edema Skin: Normal color, No rash Neurological: Alert, Oriented x3, Cranial nerves II-XII grossly intact, Normal Strength, Normal Sensation Psychological: Normal affect, Normal Mood <Yumiko Chandler - Last Filed: 04/21/20 13:08> Vital Signs/Narrative: Vital Signs Temp Pulse Resp BP Pulse Ox 04/21/20 12:53 95.8 F L 109 H 18 130/84 H 100 : - <Dewey Eaton - Last Filed: 04/21/20 13:16> Diagnostic/Tx/Re-eval - Medical Decision Making 34-year-old female presented with concern for labia abscess. She appears well nontoxic. She has a small bump on the left lower labia that is indurated. No erythema, warmth, or tenderness to suggest infection. No fluctuant abscess. There is nothing to I&D at this time. She has no symptoms of STD and there is no vesicles/lesions to suggest this. She was placed on clindamycin in case a infection is developing. I advised her to follow-up with her UNION REPRESENTATIVE this week. She was agreeable and discharged home in stable condition. <Yumiko Chandler - Last Filed: 04/21/20 13:08> - Medical Decision Making Patient was seen in individual examined by myself. There is only a small punctate area without fluctuance, tenderness, erythema. I do not believe patient needs incision and drainage at this time. She was placed on antibiotics. She was amenable to follow-up with her UNION REPRESENTATIVE. She is given return precautions. <Dewey Eaton - Last Filed: 04/21/20 13:16> ED Disposition <Yumiko Chandler - Last Filed: 04/21/20 13:08> <Dewey Eaton - Last Filed: 04/21/20 13:16> - Plan for ED Patient: Disposition: Home or Assisted Living Diagnosis: Labia irritation Instructions: ED Abscess Antibiotic Treatment Only Prescriptions: Clindamycin HCl [Cleocin] 300 mg PO Q6H #40 cap Transmission Status: Received by [facility] [place] - [place] - [id number] Referrals: Alana Georges DO [Primary Care Provider] -
== END 2020-04-21 13:28 | disposition home or self-care (01) ==
LOC: ED 13:22
PROVIDERS: Emergency Provider Physician Assistant; PCP Family Medicine
DX: N89.8 Other specified noninflammatory disorders of vagina (principal); J45.909 Unspecified asthma, uncomplicated; F43.10 Post-traumatic stress disorder, unspecified; X58.XXXA Exposure to other specified factors, initial encounter; Y93.9 Activity, unspecified; Y92.9 Unspecified place or not applicable; Y99.9 Unspecified external cause status; F17.200 Nicotine dependence, unspecified, uncomplicated; Z79.899 Other long term (current) drug therapy
CPT/HCPCS: 99282

== ENCOUNTER 2020-04-24 16:57 | Emergency (ER) | payer MEDICAID, SELFPAY ==
[2020-04-24 16:58] VITALS: BP 154/107; PULSE 99; RESP 18; TEMP 36.4; O2SAT 100; BMI 43.0
[2020-04-24] MEDS: Lidocaine 1% (20 ml mdv) 20 ML Vial INFILT (17:36)
--- NOTE | 2020-04-24 17:36 | ED.DCSUM_ITS ---
- ER Visit Summary Date of Service: 04/24/20 Chief Complaint: Labial abscess History of Present Illness: The patient is a 34 F who presents with a labial abscess. She was seen here 4 days ago and was given antibiotics. She started them yesterday but her symptoms are increasing. She did not have an I&D during her visit. Areas more painful and swollen. No fevers. She has had a history of these in the past. No trouble urinating or defecating. Physical Examination: Vital signs reviewed. exam with female building materials sales attendant shows a 1 x 1 cm left lower labial abscess with mild fluctuance. No significant erythema. Test Results: None Emergency Department Course and Treatment: Incision and drainage was performed. The area was cleansed with chlorhexidine. 2 cc of 1% lidocaine was used to anesthetize the area. A cruciate incision was made over the abscess. Loculations were broken up with hemostats. There is a scant amount of purulent material. Treatment Plan: Patient will continue with the antibiotics. She will do sitz bath at home. She will follow-up with her PCP. Disposition: Discharge Impression: Left labial abscess, 1 x 1 cm Incision and drainage by ED physician This note was generated with [employer] dictation software. It may contain incorrect words, spelling, and punctuation that were not noted in review of the chart prior to signing ED Disposition - Plan for ED Patient: Disposition: Home or Assisted Living Instructions: ED Abscess Incision And Drainage Referrals: Alana Georges DO [Primary Care Provider] -
== END 2020-04-24 17:42 | disposition home or self-care (01) ==
PROVIDERS: Emergency Provider Emergency Medicine; PCP Family Medicine
DX: N76.4 Abscess of vulva (principal); J44.9 Chronic obstructive pulmonary disease, unspecified; Z72.0 Tobacco use; Z79.899 Other long term (current) drug therapy
CPT/HCPCS: 56405; 99282

== ENCOUNTER 2020-09-08 22:15 | Emergency (ER) | payer MEDICAID, SELFPAY ==
[2020-09-08 22:15] VITALS: BP 132/80; PULSE 115; RESP 16; TEMP 36.2; O2SAT 97; BMI 36.7
--- NOTE | 2020-09-08 23:02 | EDS_ITS ---
HPI History of Present Illness Chief Complaint: Upper Extremity Injury Informant: patient Occured/Mechanism Mechanism/Context: Yes injury and Yes blunt trauma Onset/Context/Timing Onset: Month(s) Context: Gradual Onset Timing: Intermittent Location: Tingling left posterior shoulder Current Severity: Mild Maximum Severity: Mild Associated Symptoms Associated Symptoms: Positive for Parasthesia; Negative for Weakness and Loss of Funtion Narrative Narrative: 34-year-old female history of anxiety, PTSD and asthma. States she fell approximately 1 month ago hit her left shoulder posteriorly on a cement step. Since that time she had intermittent tingling and numbness in the posterior shoulder not in the arm. No loss of strength. No loss of range of motion or function. She denies hitting her head, being knocked out or having any neck injury or neck pain. She is right-hand dominant. Tonight the symptoms started around 530 6:00. Prior similar symptoms: No Recent Illness/Hospitalization: No PFSH PFSH Medical History Anxiety and depression Asthma Bone fracture COPD (chronic obstructive pulmonary disease) Frequent headaches GERD (gastroesophageal reflux disease) History of back problems Multiple allergies Home Medications bupropion HCl 150 mg PO DAILY 12/25/19 [History Last Taken Unknown] buspirone 15 mg PO BID 12/25/19 [History Last Taken Unknown] cetirizine 10 mg PO DAILY 12/25/19 [History Last Taken Unknown] trazodone 200 mg PO QHS 12/25/19 [History Last Taken Unknown] Allergy/AdvReac Type Severity Reaction Status Date / Time latex Allergy Rash Verified 09/08/20 22:17 Family History Unknown No problems noted. Surgical History History of cholecystectomy History of tonsillectomy Social History Smoking Status: Current every day smoker alcohol intake: never substance use type: does not use additional social history: DOES NOT USE ASPIRIN DOES USE IBUPROFEN ROS ROS ED ROS Narrative She denies any other symptoms. She has not recently been ill. Review of Systems ROS Unobtainable: Denies due to encephalopathy Constitutional Constitutional ED: Denies chills, sweats or weight loss Eyes Eyes: Denies change in vision ENT ENT ED: Denies ear pain Cardiovascular Cardiovascular: Denies chest pain Respiratory/Chest Respiratory/Chest: Denies dyspnea Gastrointestinal Gastrointestinal: Denies abdominal pain Genitourinary Genitourinary ED: Denies dysuria Musculoskeletal Musculoskeletal: Denies myalgias Integumentary Denies rash Neurologic Neurologic: Denies headache(s) Psychiatric Psychiatric: Denies depression Endocrine Endocrinology: Denies polyuria Hematologic/Lymphatic Hematologic/Lymphatic: Denies easy bruising Allergic/Immunologic Allergic/Immunologic ED: Denies urticaria EXAM Physical Exam Narrative Exam Narrative: Well-appearing young female no acute distress. Vital signs stable afebrile. H EENT exam normal. Nontender. Reactive light. Neck nontender. Full range of motion. Lungs clear to auscultation. Heart regular rate and rhythm no murmur. Abdomen soft nontender. Extremities moves all 4. Neurovascular intact. Back nontender left shoulder nontender full range of motion left shoulder. Normal net making supervisor strength. Normal flexion-extension elbow and wrist. Normal sensation. Normal radial pulse. The left shoulder and left upper extremity is completely normal. Neurologic exam completely normal. NIH is 0. Const Vital Signs: 09/08/20 22:15 Temperature 97.2 F L Temperature Source Temporal Pulse Rate 115 H Respiratory Rate 16 Blood Pressure 132/80 H Blood Pressure Mean 97 Pulse Ox 97 Oxygen Delivery Method Room Air Positive well nourished and well developed General Appearance ED: well developed HEENT normocephalic and atraumatic Eyes PERRL and EOMs intact bilaterally Neck full ROM and supple Chest Wall inspection of chest normal Resp normal respiratory effort and clear to auscultation bilaterally Cardio regular rate, regular rhythm and no murmurs GI non-tender and non-distended Auscultation: normoactive bowel sounds Palpation: soft Back/Spine no CVA tenderness Extremity normal to inspection Left Upper Extremity: Negative for shoulder joint Neuro oriented x3, CN's II-XII intact bilaterally, moves all extremities, no focal motor deficits and no sensory deficits noted Sensorium / Orientation: alert, oriented to person, oriented to place and oriented to time Psych mental status grossly normal Skin Rashes: no rashes MDM MDM MDM Narrative Medical decision making narrative: Patient fell a month ago. Injured her left posterior shoulder. Said since that time she has had intermittent tingling and numbness in her posterior shoulder. No loss of function or strength or sensation to her left arm. No head or neck injury. Her exam tonight is totally normal. She needs no further work-up at this time. She can follow-up as an outpatient if not improving. Motrin for pain. Discharge Plan Triage Chief Complaint: Upper Extremity Injury ED Provider: Alberto Gilbert Dx/Rx/DC Orders Clinical Impression: Contusion of left scapula Instructions: ED Shoulder Contusion Prescriptions: No Action cetirizine 10 MG tablet 10 mg PO DAILY RF: 0 bupropion HCl 100 MG tablet 150 mg PO DAILY RF: 0 trazodone 100 MG tablet 200 mg PO QHS RF: 0 buspirone 15 MG tablet 15 mg PO BID RF: 0 Primary Care Provider: Alana Georges Referrals: Alana Georges DO [Primary Care Provider] - 1 Week if not improving Activity Restrictions/Additional Instructions: Motrin for any pain. Follow-up with your doctor if not improving. Disposition Disposition: Home, self care
== END 2020-09-08 23:12 | disposition home or self-care (01) ==
PROVIDERS: Emergency Provider Emergency Medicine; PCP Family Medicine
DX: S40.012A Contusion of left shoulder, initial encounter (principal); W01.10XA Fall on same level from slipping, tripping and stumbling with subsequent striking against unspecified object, initial encounter; Y93.9 Activity, unspecified; Y92.9 Unspecified place or not applicable; Y99.9 Unspecified external cause status; J44.9 Chronic obstructive pulmonary disease, unspecified; K21.9 Gastro-esophageal reflux disease without esophagitis; F43.10 Post-traumatic stress disorder, unspecified; F32.9 Major depressive disorder, single episode, unspecified; F41.9 Anxiety disorder, unspecified; F17.200 Nicotine dependence, unspecified, uncomplicated; Z79.899 Other long term (current) drug therapy
CPT/HCPCS: 99282

== ENCOUNTER → 2022-04-16 | Outpatient (CLI) | payer MEDICAID, SELFPAY ==
[2022-04-16 14:08] LABS: ALB/GLOB Ratio 0.7 RATIO (0.9-2.4); AST(SGOT) 13 U/L (15-37); Alanine Aminotransfer ALT/SGPT 20 U/L (13-56); Albumin, Serum 3.2 g/dL (3.2-5.0); Alkaline Phosphatase 73 U/L (45-117); Anion Gap 4 (5-15); BUN 7 mg/dL (7-18); BUN/Creat Ratio 10.6 RATIO (10-20); Calcium,Total 8.9 mg/dL (8.5-10.1); Chloride 106 mmol/L (98-107); Cholesterol 216 mg/dL (200); Creatinine, Serum 0.66 mg/dL (0.55-1.02); EST Glomerular Filtration Rate 109 mL/min (>60); Est Glom Filt Rate - Afr Amer 131 mL/min (>60); Globulin 4.4 g/dL (2.2-4.2); Glucose 79 mg/dL (74-106); High Density Lipoprotein 54 mg/dL; Magnesium 2.2 mg/dL (1.6-2.6); Potassium 4.3 mmol/L (3.5-5.1); Protein, Total 7.6 g/dL (6.4-8.2); Rheumatoid Factor < 10.0 IU/mL (<15); Sodium Level 136 mmol/L (136-145); Thyroid Stim Hormone (TSH) 1.26 uIU/mL (0.358-3.74); Triglycerides 144 mg/dL; Very Low Density Lipoprotein 29 mg/dL (5-40)
[2022-04-16 14:29] LABS: HIV - WCH Non-Reactive (Nonreactive); Syphilis Antibodies Non-reactive; Vitamin D,25 Hydroxy 18.8 ng/mL
[2022-04-18 05:07] LABS: HEPATITIS B SURFACE AG Negative (Negative); Hep C Antibodies <0.1 s/co ratio (0.0-0.9); Hepatitis A IgM Antibody Negative (Negative); Hepatitis B Core AB IgM Negative (Negative)
[2022-04-18 16:42] LABS: ANTINUCLEAR ANTIBODIES DIRECT Negative (Negative)
== END | disposition home or self-care (01) ==
LOC: LAB 12:10
PROVIDERS: PCP Family Medicine; Visit Provider Family Medicine
DX: M25.50 Pain in unspecified joint (principal); Z01.419 Encounter for gynecological examination (general) (routine) without abnormal findings; E55.9 Vitamin D deficiency, unspecified; Z13.6 Encounter for screening for cardiovascular disorders; Z11.3 Encounter for screening for infections with a predominantly sexual mode of transmission; Z13.1 Encounter for screening for diabetes mellitus
CPT/HCPCS: 36415; 80053; 80061; 80074; 82306; 83735; 84443; 86038; 86140; 86431; 86703; 86780

== ENCOUNTER 2022-10-05 21:38 | Emergency (ER) | payer MEDICAID, SELFPAY ==
[2022-10-05 21:38] VITALS: BP 138/97; PULSE 98; RESP 16; TEMP 36.8; O2SAT 99; BMI 34.0
--- NOTE | 2022-10-05 22:24 | CT_ITS ---
INDICATION: injury EXAMINATION: CT Maxillofacial W/O Contrast Injection TECHNIQUE: Helically acquired images were obtained of the facial bones. A radiation dose optimization technique was used for this scan. IV Contrast dosage and agent: None. COMPARISON: 06/07/2018. FINDINGS: SOFT TISSUES: Moderate soft tissue swelling of the left cheek. No discrete fluid collections. VISUALIZED PARANASAL SINUSES: Clear. VISUALIZED MASTOID AIR CELLS: Clear. FACIAL BONES, MANDIBLE AND TMJs: Status post repair of old left orbital blowout fracture with mesh in place. No new acute displaced fractures. No lytic or blastic abnormality. VISUALIZED DENTITION: No periodontal osseous erosion. ORBITAL CONTENTS: Both globes, extraocular muscles and retrobulbar fat appear unremarkable. CT/Sinus/Facial Bone IMPRESSION: Moderate soft tissue swelling of the left cheek. No fracture. Electronically Signed: Ed Lisa MD at 23:00 EDT ,
[2022-10-05] MEDS: oxyCODONE 5 MG Tablet 10 MG PO (22:27)
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
== END 2022-10-05 23:27 | disposition home or self-care (01) ==
PROVIDERS: Emergency Provider Emergency Medicine; PCP Family Medicine; Visit Provider Emergency Medicine
DX: S00.83XA Contusion of other part of head, initial encounter (principal); J44.9 Chronic obstructive pulmonary disease, unspecified; H57.12 Ocular pain, left eye; V18.4XXA Pedal cycle driver injured in noncollision transport accident in traffic accident, initial encounter; Y93.55 Activity, bike riding
CPT/HCPCS: 70486; 99283

== ENCOUNTER 2023-01-06 12:56 | Emergency (ER) | payer MEDICAID, SELFPAY ==
[2023-01-06 13:02] VITALS: BP 120/68; PULSE 96; RESP 23; TEMP 37.2; O2SAT 97; BMI 32.6
[2023-01-06 13:04] VITALS: BP 114/83; PULSE 102; RESP 21; O2SAT 97
--- NOTE | 2023-01-06 13:05 | EKG12_ITS ---
Test Reason : Blood Pressure : / mmHG Vent. Rate : 087 BPM Atrial Rate : 087 BPM P-R Int : 170 ms QRS Dur : 068 ms QT Int : 356 ms P-R-T Axes : 036 028 033 degrees QTc Int : 428 ms Normal sinus rhythm Normal ECG Confirmed by SHAAN OREILLY ([id number]), editorial assistant ANASTASIYA CHRISTIAN ([id number]) on 01/22/2023 10:10:50 AM Referred By: PAMELLA/PC Confirmed By:SHAAN OREILLY
[2023-01-06] MEDS: 0.9% Normal Saline 1,000 ML 1000 ML IV (13:22)
[2023-01-06 13:23] VITALS: BP 126/85; PULSE 81; RESP 18; O2SAT 97
--- NOTE | 2023-01-06 13:24 | EX.ED.DYSGE1 ---
HPI History of Present Illness Chief Complaint: Syncope Narrative Narrative: Patient presents via EMS after a syncopal episode. She was standing and talking to a friend she felt hot and flushed and then she had a brief loss of consciousness with rapid full recovery without any seizure-like activity. She denies any palpitations. She denies any recent fevers or chills. She denies . She has no abdominal pain. She has no chest pain shortness of breath or pleuritic component PFSH PFS Medical History Anxiety and depression Asthma Bone fracture COPD (chronic obstructive pulmonary disease) Frequent headaches GERD (gastroesophageal reflux disease) History of back problems Multiple allergies Home Medications buspirone 15 mg tablet 15 mg PO BID 12/25/19 [History Last Taken Unknown] cetirizine 10 mg tablet 10 mg PO DAILY 12/25/19 [History Last Taken Unknown] trazodone 100 mg tablet 100 mg PO QHS 12/25/19 [History Last Taken Unknown] albuterol sulfate 90 mcg/actuation aerosol inhaler (Ventolin HFA) 2 inh inhalation BID 10/05/22 [History Last Taken Unknown] omeprazole 20 mg capsule,delayed release 20 mg PO DAILY 10/05/22 [History Last Taken Unknown] oxycodone-acetaminophen 5 mg-325 mg tablet (Percocet) 1 tab PO Q6H PRN pain 3 days #12 tabs 10/05/22 [Rx Last Taken Unknown] Allergy/AdvReac Type Severity Reaction Status Date / Time latex Allergy Rash Verified 10/05/22 21:40 Family History Unknown No problems noted. Surgical History History of cholecystectomy History of tonsillectomy Social History Smoking Status: Current every day smoker tobacco type: cigarettes alcohol intake: never substance use type: does not use additional social history: DOES NOT USE ASPIRIN DOES USE IBUPROFEN ROS ROS ED ROS Narrative Past medical history: Reviewed Medications: Reviewed Social history: Noncontributory Review of systems: All systems negative except as indicated General: No fever Eyes: No visual changes ENT: No upper airway congestion, normal voice Neck: No neck pain Cardiovascular: No chest pain. No palpitations. Syncope as in HPI Respiratory: No shortness of breath or cough Gastrointestinal: No abdominal pain, nausea vomiting or diarrhea Genitourinary: No dysuria Musculoskeletal: Denies myalgias no difficulty with ambulation Skin: No rash Neurological: No memory loss, confusion or any focal weakness EXAM Physical Exam Narrative Exam Narrative: Physical exam General: Well nourished, Well developed, No Acute Distress Head: Normocephalic, Atraumatic Eyes: Conjunctiva not pale ENT: Somewhat dry mucous membranes Neck: Supple, Nontender, No lymphadenopathy Cardiovascular: Regular rate, Regular rhythm Respiratory: No distress, CTA bilaterally Abdomen: Soft, Nontender, Nondistended Back: Nontender, Normal Inspection. Negative for: CVA tenderness Extremities: Nontender, No edema Skin: Normal color, No rash Neurological: Alert, Normal Strength, Normal Sensation Const Vital Signs: 01/06/23 13:01 01/06/23 13:02 01/06/23 13:04 Temperature 99 F Temperature Source Temporal Pulse Rate 96 102 H Respiratory Rate 23 H 21 H Respiratory Effort Normal Respiratory Pattern Normal Blood Pressure 120/68 114/83 H Blood Pressure Mean 85 93 Pulse Ox 97 97 Oxygen Delivery Method Room Air Room Air 01/06/23 13:23 Temperature Temperature Source Pulse Rate 81 Respiratory Rate 18 Respiratory Effort Respiratory Pattern Blood Pressure 126/85 H Blood Pressure Mean 98 Pulse Ox 97 Oxygen Delivery Method Room Air MDM MDM MDM Narrative Medical decision making narrative: EKG: Sinus rhythm with a rate of 87. Normal VT and QTc intervals. No LVH. No Brugada. No ischemic changes. Interpreted by emergency doctor. Telemetry: Sinus rhythm on the monitor with a rate in the low 80s as I walk into the room. No ectopy. MDM: Labs at the bedside I did brief orthostatics her heart rate increased from the low 80s as she was sitting in bed to 105 when she stood up and she felt lightheaded. Blood pressure stayed the same however I believe she was orthostatic. Therefore IV fluids were given. Otherwise there is no other reason for her syncope she could have had a vasovagal or dehydration or combination of the 2. EKG is unremarkable there is no signs of arrhythmia or any evidence that she would have an arrhythmia. I am not worried about a pulmonary embolism she has no signs or symptoms. Not worried ectopic since she is not . She will be discharged in stable condition. She did improve with IV fluids. Lab Data Labs: Laboratory Results - last 24 hr 01/06/23 13:20 WBC 7.9 RBC 4.05 L Hgb 12.7 Hct 38.8 MCV 95.8 MCH 31.4 MCHC 32.7 RDW Std Deviation 42.9 RDW Coeff of Joanne 12.1 Plt Count 235 MPV 10.7 Immature Gran % (Auto) 0.100 Neut % (Auto) 49.1 Lymph % (Auto) 41.5 H Bacon % (Auto) 6.2 Eos % (Auto) 2.7 Baso % (Auto) 0.4 Absolute Neuts (auto) 3.9 Absolute Lymphs (auto) 3.28 Nucleated RBC % 0 Sodium 138 Potassium 3.7 Chloride 109 H Carbon Dioxide 24.0 Anion Gap 5 BUN 8 Creatinine 0.75 Estim Creat Clear Calc 86.61 Est GFR (MDRD) Af Amer 113 Est GFR (MDRD) Non-Af 93 BUN/Creatinine Ratio 10.7 Glucose 123 H Calcium 8.0 L Total Bilirubin 0.40 AST 10 L ALT 17 Alkaline Phosphatase 62 Total Protein 6.2 L Albumin 2.8 L Globulin 3.4 Albumin/Globulin Ratio 0.8 L Serum , Qual NEGATIVE Discharge Plan Triage Chief Complaint: Syncope ED Provider: Rolly Fatima Dx/Rx/DC Orders Clinical Impression: Acute dehydration, Syncope Instructions: Causes of Syncope, Dehydration Prescriptions: No Action cetirizine 10 MG tablet 10 mg PO DAILY trazodone 100 MG tablet 100 mg PO QHS buspirone 15 MG tablet 15 mg PO BID omeprazole 20 mg capsule,delayed release(DR/EC) 20 mg PO DAILY albuterol sulfate [Ventolin HFA] 90 mcg/actuation HFA aerosol inhaler 2 inh INHALATION BID oxycodone-acetaminophen [Percocet] 5-325 mg tablet 1 tab PO Q6H PRN (Reason: pain) 3 Days Qty: 12 0RF Primary Care Provider: Alana Georges Referrals: Alana Georges DO [Primary Care Provider] - 3-5 Days Disposition Disposition: Home, Self Care
[2023-01-06 13:31] LABS: Absolute Lymphocyte Count 3.28 X10^3/uL (0.83-4.51); Absolute Neutrophil Count 3.9 X10^3/uL (2.0-7.7); Basophil# 0.03 X10^3/uL; Basophil% 0.4 % (0-1); Eosinophil# 0.21 X10^3/uL; Eosinophils% 2.7 % (0-5); Hematocrit 38.8 % (37-47); Hemoglobin 12.7 g/dL (12.0-15.0); Lymphocyte # 3.28 X10^3/ul (0.83-4.51); Lymphocyte % 41.5 % (19-41); Mean Corp Hgb Conc 32.7 g/dL (32-36); Mean Corpuscular Hgb 31.4 pg (27.0-32.0); Mean Corpuscular Volume 95.8 fL (81-99); Mean Platelet Vol. 10.7 fl (6.2-12.0); Monocyte# 0.49 X10^3/uL; Monocyte% 6.2 % (0-10); NRBC Flagged by Analyzer 0 % (0-5); Neutrophil # 3.89 X10^3/uL (2.7-7.7); Neutrophil % 49.1 % (47-70); Platelet Count 235 K/mm3 (150-450); RBC Distribution Width CV 12.1 % (11.6-14.6); RBC Distribution Width SD 42.9 fl (35.1-43.9); Red Blood Count 4.05 M/mm3 (4.2-5.4); White Blood Count 7.9 K/mm3 (4.4-11.0)
[2023-01-06 13:43] LABS: Internal QC Validated? YES +Cl - CLEAR BKGD; Pregnancy, Serum, hCG Quali. NEGATIVE Negative
[2023-01-06 13:47] LABS: ALB/GLOB Ratio 0.8 RATIO (0.9-2.4); AST(SGOT) 10 U/L (15-37); Alanine Aminotransfer ALT/SGPT 17 U/L (13-56); Albumin, Serum 2.8 g/dL (3.2-5.0); Alkaline Phosphatase 62 U/L (45-117); Anion Gap 5 (5-15); BUN 8 mg/dL (7-18); BUN/Creat Ratio 10.7 RATIO (10-20); Chloride 109 mmol/L (98-107); Creatinine, Serum 0.75 mg/dL (0.55-1.02); EST Glomerular Filtration Rate 93 mL/min (>60); Est Glom Filt Rate - Afr Amer 113 mL/min (>60); Estimated Creatinine Clearance 86.61 ml/min; Globulin 3.4 g/dL (2.2-4.2); Glucose 123 mg/dL (74-106); Potassium 3.7 mmol/L (3.5-5.1); Protein, Total 6.2 g/dL (6.4-8.2); Sodium Level 138 mmol/L (136-145)
== END 2023-01-06 14:04 | disposition home or self-care (01) ==
PROVIDERS: Emergency Provider Emergency Medicine; PCP Family Medicine; Visit Provider Emergency Medicine
DX: E86.0 Dehydration (principal); J44.9 Chronic obstructive pulmonary disease, unspecified; R55 Syncope and collapse; F17.210 Nicotine dependence, cigarettes, uncomplicated
CPT/HCPCS: 80053; 84703; 85025; 93005; 96360; 99285; J7030

== ENCOUNTER 2023-03-07 15:45 | Emergency (ER) | payer MEDICAID, SELFPAY ==
[2023-03-07 15:45] VITALS: BP 140/105; PULSE 98; RESP 16; TEMP 36.2; O2SAT 100; BMI 31.5
--- NOTE | 2023-03-07 15:54 | EX.ED.DYSGE1 ---
HPI History of Present Illness Chief Complaint: General Illness Detail of Chief Complaint: Cold symptoms Informant: patient Narrative Narrative: Patient presents to the emergency department with complaint of cold symptoms and requesting testing for COVID-19. Patient states that over the last 2 days she has had cough and sore throat as well as headache and body aches. She has had a subjective fever. Patient denies any sick contacts. She denies urinary symptoms. She denies chest pain or abdominal pain. Cough mostly nonproductive. [facility] Medical History (Updated 03/07/23 @ 16:[address] Cristy Alicea, DO) Anxiety and depression Asthma Bone fracture COPD (chronic obstructive pulmonary disease) Frequent headaches GERD (gastroesophageal reflux disease) History of back problems Multiple allergies Seizures Home Medications cetirizine 10 mg tablet 10 mg PO DAILY 12/25/19 [History Last Taken Unknown] albuterol sulfate 90 mcg/actuation aerosol inhaler (Ventolin HFA) 2 inh inhalation BID 10/05/22 [History Last Taken Unknown] omeprazole 20 mg capsule,delayed release 20 mg PO DAILY 10/05/22 [History Last Taken Unknown] ergocalciferol (vitamin D2) 1,250 mcg (50,000 unit) capsule (Vitamin D2) 1,250 mcg PO DAILY 03/07/23 [History Last Taken Unknown] fluticasone propionate 50 mcg/actuation nasal spray,suspension 1 spray intranasal Q12H PRN allergy symptoms 03/07/23 [History Last Taken Unknown] levetiracetam 500 mg tablet 500 mg PO Q12H 03/07/23 [History Last Taken Unknown] mometasone-formoterol HFA 200 mcg-5 mcg/actuation aerosol inhaler (Dulera) 2 inh inhalation Q12H 03/07/23 [History Last Taken Unknown] naltrexone 50 mg tablet 50 mg PO Q24H 03/07/23 [History Last Taken Unknown] Allergy/AdvReac Type Severity Reaction Status Date / Time latex Allergy Rash Verified 03/07/23 15:47 Family History Unknown No problems noted. Surgical History History of cholecystectomy History of tonsillectomy Social History Smoking Status: Current every day smoker tobacco type: cigarettes alcohol intake: never substance use type: does not use additional social history: DOES NOT USE ASPIRIN DOES USE IBUPROFEN ROS ROS ED Review of Systems ROS Unobtainable: other Constitutional Constitutional ED: Reports chills, fever(s) and lethargy; Denies sweats or weight loss Eyes Eyes: Denies blurry vision, change in vision or diplopia ENT ENT ED: Reports sore throat; Denies rhinorrhea Cardiovascular Cardiovascular: Denies chest pain, orthopnea or racing heartbeat Respiratory/Chest Respiratory/Chest: Reports cough; Denies dyspnea, dyspnea on exertion, orthopnea or sputum Gastrointestinal Gastrointestinal: Denies abdominal pain, diarrhea, nausea or vomiting Genitourinary Genitourinary ED: Denies dysuria, hematuria or urinary frequency Musculoskeletal Musculoskeletal: Denies arthralgias, back pain, myalgias or neck pain Integumentary Denies abscess, Abrasions or rash Neurologic Neurologic: Denies headache(s) or weakness Psychiatric Psychiatric: Denies anxiety, depression or suicidal thoughts Endocrine Endocrinology: Denies polydipsia, polyphagia or polyuria Hematologic/Lymphatic Hematologic/Lymphatic: Denies easy bleeding, easy bruising or lymphadenopathy Allergic/Immunologic Allergic/Immunologic ED: Denies mouth swelling, tongue swelling or urticaria EXAM Physical Exam Const Vital Signs: 03/07/23 15:45 03/07/23 15:52 Temperature 97.2 F L Temperature Source Temporal Pulse Rate 98 Respiratory Rate 16 Respiratory Effort Normal Respiratory Pattern Normal Blood Pressure 140/105 H Blood Pressure Mean 116 Pulse Ox 100 Oxygen Delivery Method Room Air MDM MDM MDM Narrative Medical decision making narrative: Patient presents with URI symptoms with concern for COVID. COVID and flu testing obtained. Testing positive for COVID-19. Patient otherwise looks well. I do not feel any treatment is indicated. Recommended supportive care. Patient advised to quarantine till symptoms resolved. Patient advised to return if increasing shortness of breath or condition should worsen anyway. Lab Data Attestation: I reviewed the patient's lab results. Discharge Plan Triage Chief Complaint: General Illness ED Provider: Cristy Alicea Dx/Rx/DC Orders Clinical Impression: COVID-19 Instructions: Caring for Someone Who Has COVID-19 Prescriptions: No Action cetirizine 10 MG tablet 10 mg PO DAILY omeprazole 20 mg capsule,delayed release(DR/EC) 20 mg PO DAILY albuterol sulfate [Ventolin HFA] 90 mcg/actuation HFA aerosol inhaler 2 inh INHALATION BID levetiracetam 500 mg tablet 500 mg PO Q12H Patient Comments: TAKE 1 TABLET BY MOUTH TWICE A DAY ergocalciferol (vitamin D2) [Vitamin D2] 1,250 mcg (50,000 unit) capsule 1,250 mcg PO DAILY fluticasone propionate 50 mcg/actuation spray,suspension 1 spray INTRANASAL Q12H PRN (Reason: allergy symptoms) Dulera 200-5 mcg/actuation HFA aerosol inhaler 2 inh INHALATION Q12H naltrexone 50 mg tablet 50 mg PO Q24H Primary Care Provider: Alana Georges Referrals: Alana Georges DO [Primary Care Provider] - 5-7 Days Disposition Disposition: Home, Self Care
== END 2023-03-07 17:07 | disposition home or self-care (01) ==
PROVIDERS: Emergency Provider Emergency Medicine; PCP Family Medicine; Visit Provider Emergency Medicine
DX: U07.1 COVID-19 (principal); J44.9 Chronic obstructive pulmonary disease, unspecified; J45.909 Unspecified asthma, uncomplicated; K21.9 Gastro-esophageal reflux disease without esophagitis; F17.210 Nicotine dependence, cigarettes, uncomplicated
CPT/HCPCS: 87428; 99282

== ENCOUNTER 2023-07-13 11:47 | Emergency (ER) | payer MEDICAID, SELFPAY ==
[2023-07-13 11:48] VITALS: BP 135/66; PULSE 87; RESP 16; TEMP 36.4; O2SAT 99; BMI 37.4
--- NOTE | 2023-07-13 12:47 | EDS_ITS ---
HPI History of Present Illness Chief Complaint: Edema Detail of Chief Complaint: Swelling of lower extremities Informant: patient Onset/Context/Timing Onset: Today Context: Sudden Onset Timing: Continuous Quality: Edema of both lower extremities Location: Lower extremities Current Severity: Mild Maximum Severity: Mild Worsened by: Nothing per patient Relieved by: Nothing Associated Symptoms Associated Symptoms: None Narrative Narrative: Patient is a former meth addict who presents with swelling of her lower extremities noted this morning. She states this is the first time she is noted. She states she did have some swelling of her ankles noted a couple days ago. When asked if she has been less active she informed me that her father recently and she has been sitting and standing a lot. She denies orthopnea or PND. She denies chest discomfort. She denies history of diabetes, hypertension or kidney disease. There is a family history of lupus. She denies urologic symptoms. She denies fever, chills night sweats. She denies headache, visual, ocular auditory symptoms. She denies abdominal pain. She denies weight loss or night sweats. Prior similar symptoms: No Recent Illness/Hospitalization: No PFSH PFSH Medical History Anxiety and depression Asthma Bone fracture COPD (chronic obstructive pulmonary disease) Frequent headaches GERD (gastroesophageal reflux disease) History of back problems Multiple allergies Seizures Home Medications cetirizine 10 mg tablet 10 mg PO DAILY 12/25/19 [History Last Taken Unknown] albuterol sulfate 90 mcg/actuation aerosol inhaler (Ventolin HFA) 2 inh inhalation BID 10/05/22 [History Last Taken Unknown] omeprazole 20 mg capsule,delayed release 20 mg PO DAILY 10/05/22 [History Last Taken Unknown] ergocalciferol (vitamin D2) 1,250 mcg (50,000 unit) capsule (Vitamin D2) 1,250 mcg PO DAILY 03/07/23 [History Last Taken Unknown] fluticasone propionate 50 mcg/actuation nasal spray,suspension 1 spray intranasal Q12H PRN allergy symptoms 03/07/23 [History Last Taken Unknown] levetiracetam 500 mg tablet 500 mg PO Q12H 03/07/23 [History Last Taken Unknown] mometasone-formoterol HFA 200 mcg-5 mcg/actuation aerosol inhaler (Dulera) 2 inh inhalation Q12H 03/07/23 [History Last Taken Unknown] naltrexone 50 mg tablet 50 mg PO Q24H 03/07/23 [History Last Taken Unknown] Allergy/AdvReac Type Severity Reaction Status Date / Time latex Allergy Rash Verified 07/13/23 11:48 Family History Unknown No problems noted. Surgical History History of cholecystectomy History of tonsillectomy Social History Smoking Status: Current every day smoker tobacco type: cigarettes alcohol intake: never substance use type: does not use additional social history: DOES NOT USE ASPIRIN DOES USE IBUPROFEN ROS ROS ED Constitutional Constitutional ED: Denies chills, fever(s), subjective or sweats Eyes Eyes: Denies blurry vision, change in vision or diplopia ENT ENT ED: Denies ear pain or rhinorrhea Cardiovascular Cardiovascular: Denies chest pain, orthopnea, palpitations, paroxysmal nocturnal dyspnea or racing heartbeat Respiratory/Chest Respiratory/Chest: Denies cough, dyspnea, dyspnea on exertion, orthopnea or paroxysmal nocturnal dyspnea Gastrointestinal Gastrointestinal: Denies abdominal pain, constipation, diarrhea, nausea or vomiting Genitourinary Genitourinary ED: Denies dysuria, hematuria or urinary frequency Musculoskeletal Musculoskeletal: Denies arthralgias, back pain, myalgias or neck pain Integumentary Denies rash Neurologic Neurologic: Denies weakness Psychiatric Psychiatric: Reports depression Hematologic/Lymphatic Hematologic/Lymphatic: Reports systems reviewed and no addt'l complaints, except as documented EXAM Physical Exam Const Vital Signs: 07/13/23 11:48 07/13/23 12:37 07/13/23 14:00 Temperature 97.5 F L Temperature Source Temporal Pulse Rate 87 78 Respiratory Rate 16 Respiratory Effort Normal Non-Labored Respiratory Pattern Normal Blood Pressure 135/66 H Blood Pressure Mean 89 Pulse Ox 99 Oxygen Delivery Method Room Air Positive well nourished, well developed, obese and unkempt General Appearance ED: unkempt, well developed and NAD; Negative for cyanotic, diaphoretic or pallor Nutritional Appearance: obese HEENT HEENT Narrative: Poor dentition. Head is atraumatic and normocephalic. Ears are normal. Nares are patent. Posterior pharynx unremarkable. Eyes PERRL and EOMs intact bilaterally General Eye ED: Negative for pale conjunctiva or scleral icterus Neck no lymphadenopathy, supple and no JVD Chest Wall inspection of chest normal and palpation of chest normal Resp normal respiratory effort and clear to auscultation bilaterally Cardio regular rate, regular rhythm, S1 normal heart sound, S2 normal heart sound and no murmurs GI normal to inspection, nondistended, normoactive bowel sounds, non-tender, non- distended and no masses; Negative for hepatosplenomegaly Auscultation: normoactive bowel sounds Palpation: soft Back/Spine no CVA tenderness Extremity normal to inspection Extremity Narrative: There is minimal pitting edema noted. General Extremety ED: Yes edema General Extremity: edema Neuro oriented x3, CN's II-XII intact bilaterally and no sensory deficits noted Sensorium / Orientation: alert Motor Exam: strength 5/5 throughout Psych mental status grossly normal Appearance: unkempt Skin no rashes or lesions noted, no wounds and skin turgor normal General Skin Exam: elasticity normal; Negative for jaundice or pallor MDM MDM MDM Narrative Medical decision making narrative: Differential diagnosis would be dependent lymphedema, hypoalbuminemia, other causes be obstructive due to neoplasm which based on history is unlikely and congestive heart failure based on physical exam and history is also unlikely. Will obtain UA to assess for proteinuria. BMP to assess renal function and as well as albumin and total protein. Unless there is abnormal results indicate kidney dysfunction we will not obtain any inflammatory markers or any markers to evaluate for lupus since there is a family history. Lab Data Attestation: I reviewed the patient's lab results. Lab results narrative: CBC is unremarkable. Basic metabolic panel is unremarkable. Hepatic profile reveals slight elevation of bilirubin which may represent Gebauer's disease. UA reveals elevated specific gravity of 1.025 with mild proteinuria. Patient does have microscopic hematuria with bacteriuria. Will send culture since patient is asymptomatic. Macro was positive for blood, trace leukoesterase trace ketones negative nitrites. Labs: Laboratory Results - last 24 hr 07/13/23 13:00 WBC 8.7 RBC 4.22 Hgb 12.6 Hct 38.8 MCV 91.9 MCH 29.9 MCHC 32.5 RDW Std Deviation 42.0 RDW Coeff of Joanne 12.5 Plt Count 243 MPV 10.6 Sodium 138 Potassium 3.6 Chloride 109 H Carbon Dioxide 28.0 Anion Gap 1 L BUN 9 Creatinine 0.63 Estim Creat Clear Calc 127.12 Est GFR (MDRD) Af Amer 138 Est GFR (MDRD) Non-Af 114 BUN/Creatinine Ratio 14.3 Glucose 92 Calcium 8.9 Total Bilirubin 1.30 H AST 14 L ALT 24 Alkaline Phosphatase 79 Total Protein 6.9 Albumin 3.4 Globulin 3.5 Albumin/Globulin Ratio 1.0 Urine Color Yellow Urine Clarity Sl. Cloudy Urine pH 6.0 Ur Specific [place] 1.025 Urine Protein 30 H Urine Glucose (UA) Normal Urine Ketones 5 H Urine Occult Blood 150 H Urine Nitrite Negative Urine Bilirubin Negative Urine Urobilinogen 1 H Ur Leukocyte Esterase 25 H Urine RBC 10-25 SEEN Urine WBC 0-5 SEEN Ur Squamous Epith Cells 0-5 SEEN Urine Bacteria 1+ Urine Mucus 0 SEEN Discharge Plan Triage Chief Complaint: Edema ED Provider: Natan Baxter Dx/Rx/DC Orders Clinical Impression: Bacteriuria, Ketosis, Lymphedema, Dehydration Instructions: ED Peripheral Edema, Bilateral Prescriptions: No Action cetirizine 10 MG tablet 10 mg PO DAILY omeprazole 20 mg capsule,delayed release(DR/EC) 20 mg PO DAILY albuterol sulfate [Ventolin HFA] 90 mcg/actuation HFA aerosol inhaler 2 inh INHALATION BID levetiracetam 500 mg tablet 500 mg PO Q12H Patient Comments: TAKE 1 TABLET BY MOUTH TWICE A DAY ergocalciferol (vitamin D2) [Vitamin D2] 1,250 mcg (50,000 unit) capsule 1,250 mcg PO DAILY fluticasone propionate 50 mcg/actuation spray,suspension 1 spray INTRANASAL Q12H PRN (Reason: allergy symptoms) Dulera 200-5 mcg/actuation HFA aerosol inhaler 2 inh INHALATION Q12H naltrexone 50 mg tablet 50 mg PO Q24H Primary Care Provider: Alana Georges Referrals: Alana Georges, [Primary Care Provider] - 10-14 Days if not better Activity Restrictions/Additional Instructions: When you are sitting recommend elevating your feet. Your toes need to be above your nose. Recommend increased activity and walking. You are mildly dehydrated. Recommend increasing your fluid intake. Disposition Disposition: Home, Self Care
[2023-07-13 13:07] LABS: Mucous, Urine 0 SEEN /hpf (<or=2+)
[2023-07-13 13:08] LABS: Color, Urine Yellow (Yellow); Glucose, Dipstick Normal (Normal); Hematocrit 38.8 % (37-47); Hemoglobin 12.6 g/dL (12.0-15.0); Ketone-Dipstick 5 mg/dl (Negative); Leukocyte Esterase-Dipstick 25 /ul (Negative); Mean Corp Hgb Conc 32.5 g/dL (32-36); Mean Corpuscular Hgb 29.9 pg (27.0-32.0); Mean Corpuscular Volume 91.9 fL (81-99); Mean Platelet Vol. 10.6 fl (6.2-12.0); Nitrite-Dipstick Negative (Negative); Occult Blood-Urine 150 /ul (Negative); Platelet Count 243 K/mm3 (150-450); Protein-Dipstick 30 mg/dl (Negative); RBC Distribution Width CV 12.5 % (11.6-14.6); Red Blood Count 4.22 M/mm3 (4.2-5.4); Specific Gravity, Urine 1.025 (1.002-1.030); Urine Bilirubin Dipstick Negative (Negative); Urine Clarity Sl. Cloudy (Clear); Urine Urobilinogen 1 mg/dl (Normal); White Blood Count 8.7 K/mm3 (4.4-11.0)
[2023-07-13 13:17] LABS: Bacteria 1+ /hpf (None Seen); Red Blood Cells-Urine 10-25 SEEN /hpf (0-5); Squamous Epithelial Cells - UA 0-5 SEEN /hpf (5-10); White Blood Cells 0-5 SEEN /hpf (0-5)
[2023-07-13 13:23] LABS: AST(SGOT) 14 U/L (15-37); Alanine Aminotransfer ALT/SGPT 24 U/L (13-56); Albumin, Serum 3.4 g/dL (3.2-5.0); Alkaline Phosphatase 79 U/L (45-117); Anion Gap 1 (5-15); BUN 9 mg/dL (7-18); BUN/Creat Ratio 14.3 RATIO (10-20); Calcium,Total 8.9 mg/dL (8.5-10.1); Chloride 109 mmol/L (98-107); Creatinine, Serum 0.63 mg/dL (0.55-1.02); EST Glomerular Filtration Rate 114 mL/min (>60); Est Glom Filt Rate - Afr Amer 138 mL/min (>60); Estimated Creatinine Clearance 127.12 ml/min; Globulin 3.5 g/dL (2.2-4.2); Glucose 92 mg/dL (74-106); Potassium 3.6 mmol/L (3.5-5.1); Protein, Total 6.9 g/dL (6.4-8.2); Sodium Level 138 mmol/L (136-145)
--- OUTSIDE RECORDS SUMMARY | 2023-07-13 13:57 | XMS RPT_ITS | CCD ---
Author Name Unknown Address Formerly [facility] [place] [address] Organization [facility] Care Team Providers Care Doctor Naturopathic Name Role Phone NANETTE SIBLEY Unavailable Unavailable NANETTE SIBLEY Unavailable Unavailable BUSHRA YUN DO Primary Care Physician Bushra Yun DO Primary Care Provider Bushra Yun DO Primary Care Provider CHRISTIANA WASHINGTON Attending Unavailable CHRISTIANA WASHINGTON Referring Unavailable BUSHRA YUN Primary Care Unavailable Bushra Yun DO Primary Care Provider [phone] GRISELDA MAX MD Attending Unavailable BUSHRA YUN DO Primary Care Unavailable BUSHRA YUN DO Primary Care Unavailable BUSHRA YUN DO Attending Unavailable ANA CARLISLE PA-C Attending Unavailab BUSHRA Lopez DO Primary Care Unavailable BUSHRA YUN Primary Care Unavailable JEMMA BOYLE Referring Unavailable JEMMA BOYLE Attending Unavailable BUSHRA YUN Primary Care Unavailable JEMMA BOYLE Attending Unavailable Allergies Allergy Classification Reported Allergen(s) Allergy Type Date of Onset Reaction(s) Facility (14 sources) Latex; Translations: [LATEX] Propensity to adverse reactions to drug (disorder) 6 Rash [facility] Other [facility] Medications Current Medications Medication Drug Class(es) Dates Sig (Normalized) Sig (Original) albuterol MDI (90 mcg/inh) CFC free inhalation aerosol (1 source) Start: 09-13-2021 End: 03-12-2022 take 2 puff(s) by inhalation every six hours as needed for wheezing albuterol MDI (90 mcg/inh) CFC free inhalation aerosol 2 puff(s), Inhalation, q6hr, PRN as needed for wheezing, Okay to change to formulary preferred, # 1 EA, 5 Refill(s), Pharmacy: [place] [id number], COPD (chronic obstructive pulmonary disease) Seasonal allergies, 156.4, cm, 09/13/21 8... Start Date: 09/13/21 Stop Date: 03/12/22 Status: Ordered 12 hr buPROPion hydrochloride 100 mg extended release oral tablet (11 sources) Aminoketone Start: 04-26-2020 take 1 tablet by mouth every hour, then take 1 tablet by mouth once daily buPROPion 100 mg/12 hours (SR) oral tablet, extended release Dose : 100 mg = 1 tab(s), Oral, qDay, # 60 tab(s), 0 Refill(s) Start Date: 04/26/20 Status: Ordered Completed/Discontinued Medications Medication Drug Class(es) Dates Sig (Normalized) Sig (Original) [id number] 200 actuat albuterol 0.09 mg/actuat metered dose inhaler (10 sources) beta2-Adrenergic Agonist Start: 07-09-2010 take 2 puff(s) by inhalation every six hours as needed albuterol HFA (PROVENTIL HFA, VENTOLIN HFA) 90 mcg/actuation inhaler Inhale 2 Puffs as instructed every 6 hours as needed. 0 07/09/2010 Active Problems Active Problems Problem Classification Problem Date Documented Da te Episodic/Chronic Asthma (6 sources) Asthma; Translations: [Unspecified asthma, uncomplicated] Onset: 3 11-16-2014 Chronic Attention-deficit, conduct, and disruptive behavior disorders (6 sources) Attention deficit hyperactivity disorder; Translations: [Attention-deficit hyperactivity disorder, unspecified type] Onset: 3 11-16-2014 Chronic Chronic obstructive pulmonary disease and bronchiectasis (6 sources) Chronic obstructive lung disease; Translations: [Chronic obstructive pulmonary disease, unspecified] Onset: 3 03-17-2018 Chronic Contraceptive and procreative management (1 source) Encounter for insertion of intrauterine contraceptive device; Translations: [Encounter for IUD insertion] Onset: 3 Episodic Diabetes mellitus without complication (1 source) Hyperglycemia 12-17-2020 Episodic Esophageal disorders (6 sources) Gastroesophageal reflux disease; Translations: [Gastro-esophageal reflux disease without esophagitis] Onset: 3 03-17-2018 Chronic Immunizations and screening for infectious disease (4 sources) Patient encounter status; Translations: [Encounter for screening for human papillomavirus (HPV)] 01-30-2023 Episodic Nutritional deficiencies (1 source) Vitamin D deficiency 08-30-2019 Chronic Open wounds of extremities (1 source) Laceration of left foot; Translations: [Laceration without foreign body, left foot, initial encounter] Episodic Other connective tissue disease (1 source) Spasm 04-26-2020 Episodic Other fractures (5 sources) Closed fracture sacrum; Translations: [Unspecified fracture of sacrum, initial encounter for closed fracture] Onset: 3 01-30-2023 Episodic Other gastrointestinal disorders (6 sources) Irritable bowel syndrome; Translations: [Irritable bowel syndrome without diarrhea] Onset: 3 04-26-2020 Chronic Other lower respiratory disease (5 sources) H/O: asthma; Translations: [Personal history of other diseases of the respiratory system] Onset: 3 01-30-2023 Episodic Other nervous system disorders (1 source) Numbness; Translations: [Anesthesia of skin] Episodic Other non-traumatic joint disorders (2 sources) Multiple joint pain; Translations: [Pain in unspecified joint] 02-15-2019 Episodic Other screening for suspected conditions (not mental disorders or infectious disease) (2 sources) Viral screening status; Translations: [Cancer cervix screening status] 09-13-2021 Episodic Other upper respiratory disease (1 source) Seasonal allergy 02-15-2019 Chronic Pneumonia (except that caused by tuberculosis or sexually transmitted disease) (5 sources) Pneumonia; Translations: [Pneumonia, unspecified organism] Onset: 3 01-30-2023 Episodic Residual codes; unclassified (1 source) Flushing 02-15-2019 Episodic Residual codes; unclassified (1 source) Requires diphtheria, tetanus and pertussis vaccination 09-13-2021 Episodic Residual codes; unclassified (1 source) Requires vaccination 02-15-2019 Episodic Skull and face fractures (5 sources) Closed fracture of orbital floor (blow-out); Translations: [Fracture of orbital floor, unspecified side, initial encounter for closed fracture] Onset: 3 01-30-2023 Episodic Substance-related disorders (6 sources) Methamphetamine abuse; Translations: [Smoker] Onset: 3 08-30-2019 Chronic Syncope (5 sources) Syncope; Translations: [Syncope and collapse] Onset: 3 01-30-2023 Episodic Unclassified (1 source) Breast feeding () (observable entity) 08-30-2015 Past or Other Problems Problem Classification Problem Date Documented Date Episodic/Chronic Bacterial infection; unspecified site (10 sources) Actinomycotic infection; Translations: [Actinomycosis, unspecified] Onset: 03-04-2012 03-04-2012 Episodic Biliary tract disease (6 sources) Calculus of gallbladder without cholecystitis without obstruction; Translations: [Gallstone] Onset: 03-26-2018 03-26-2018 Episodic Sexually transmitted infections (not HIV or hepatitis) (5 sources) Chlamydial infection of lower genitourinary tract; Translations: [Other chlamydial infection of lower genitourinary tract] Onset: 02-19-2012 05-06-2021 Episodic Superficial injury; contusion (5 sources) Hematoma of face; Translations: [Contusion of other part of head, initial encounter] Onset: 10-06-2022 01-30-2023 Episodic Results Test Name Value Interpretation Reference Range Facil ity Vital Signs Date Time Vital Sign Value Performing Clinician Faci lity 04-20-2023 11:39-0500 Diastolic blood pressure 82 mm[Hg] Jemma [place] [employer]ADC PLANS STAFF OFFICER Work Phone: [facility] 04-20-2023 11:39-0500 Heart rate 82 /min Jemma [place] [employer].RACHEL Work Phone: [facility] 04-20-2023 11:39-0500 SaO2% (BldA) [Mass fraction] 99 % Jemma [place] [employer] PL[employer] STAFF OFFICER Work Phone: [facility] 04-20-2023 11:39-0500 Systolic blood pressure 120 mm[Hg] Jemma [place] [employer].RACHEL Work Phone: [facility] 12-11-2023 11:13-0500 Body weight 87.09 kg Jemma [place] [employer] PL[employer] STAFF OFFICER Work Phone: [facility] 01-30-2023 14:01-0400 Body weight 84.37 kg Jemma [place] [employer] PLANS STAFF OFFICER Work Phone: [facility] 01-30-2023 14:01-0400 Diastolic blood pressure 72 mm[Hg] Jemma [place] [employer] PL[employer] STAFF OFFICER Work Phone: [facility] 01-30-2023 14:01-0400 Systolic blood pressure 104 mm[Hg] Jemma [place] [employer] PL[employer] STAFF OFFICER Work Phone: [facility] Encounters Encounter Date Encounter Type Care Provider Facility Start: 04-20-2023 End: 04-20-2023 ambulatory BUSHRA YUN Facility:[facility] Start: 04-20-2023 End: 04-20-2023 Patient encounter procedure Jemma [place] [employer] STAFF OFFICER Work Phone: OB/Gynecology Procedures Date Procedure Procedure Detail Performing Clinician Start: 04-20-2023 Urine test visual color cmprsn meths Jemma [place] [employer] PL[employer] STAFF OFFICER Work Phone: Start: 01-30-2023 Iadna chlamydia trachomatis amplified probe tq Jemma [place] [employer] STAFF OFFICER Work Phone: Cholecystectomy BUSHRA HOU DO Laboratory test resu lt abnormal Abnormal laboratory test result Christiana Washington MD Work Phone: Plastic surgery - speciality (qualifier value) BUSHRA YUN DO Plan of Treatment Date Care Activity Detail Author Start: 09-14-2031 Urine microalbumin profile DTaP,Tdap,Td Vaccine (3 - Td or Tdap) [facility] Start: 01-31-2028 HPV Testing HPV Testing [facility] Start: 01-31-2028 Pap Testing Pap Testing [facility] Start: 05-01-2025 HPV TESTING HPV TESTING [facility] Start: 05-01-2025 PAP TESTING PAP TESTING [facility] Start: 01-09-2023 Influenza vaccination Influenz a Vaccine (#1) [facility] Start: 06-11-2022 End: 08-11-2022 25-hydroxyvitamin D3 [Mass/volume] in Serum or Plasma VITAMIN D 25 HYDROXY Lab Routine Pain in joint, multiple sites Expected: 06/11/2022, Expires: 08/11/2022 [facility] Work Phone: Immunizations Immunization Date Immunization Notes Care Provider Candie sousa 04-15-2022 influenza virus vacc ine, unspecified formulation Jemma Boyle APRN.[employer]ADC PLANS STAFF OFFICER Work Phone: [facility] 09-13-2021 tetanus toxoid, redu gavin diphtheria toxoid, and acellular pertussis vaccine, adsorbed; Translations: [Boostrix (Tdap)] BUSHRA YUN DO [facility] 02-15-2019 influenza, injectabl e, quadrivalent, preservative free; Translations: [Fluarix PF Quadrivalent ] BUSHRA YUN DO [facility] 06-10-2018 influenza virus vacc ine, unspecified formulation BUSHRA YUN DO [facility] 01-22-2015 influenza virus vacc ine, unspecified formulation BUSHRA YUN DO [facility] 03-29-2014 influenza virus vacc ine, unspecified formulation BUSHRA YUN DO [facility] 03-29-2014 pneumococcal polysaccharide vaccine, 23 valent BUSHRA YUN DO [facility] 03-03-2011 tetanus toxoid, redu gavin diphtheria toxoid, and acellular pertussis vaccine, adsorbed BUSHRA YUN DO [facility] Payers Date Payer Category Payer Medicaid [id number] 2022 Unknown [id number] 2010 Medicaid [id number] 1987 Unknown [id number] 1987 Unknown [id number] 1987 Unknown [id number] Social History Date Type Detail Facility Start: 01-03-2020 Tobacco smoking status Heavy t obacco smoker (finding) [facility] Start: 1985 Sex Assigned At Female [facility] Start: 03-26-2008 End: 04-20-2023 Tobacco smoking status NHIS Smokes tobacco daily [facility] Start: 03-26-2008 History of tobacco use Cigarette Smo ker [facility] Start: 10-31-2021 End: 2022 Cigarettes smoked current (pack per day) - Reported 1 [facility] Start: 10-31-2021 End: 04-20-2023 Tobacco use and exposure Smokeless tobacco non-user [facility] Start: 12-26-2021 End: 04-20-2023 Alcohol intake Ex-drinker (finding) [facility] Start: 12-16-2021 End: 12-26-2021 Exposure to SARS-CoV-2 (event) Not sure [facility] Start: 2022 End: 01-30-2023 Tobacco use panel [facility] National Score (1-10 0), lower number is lower risk 70 [facility] Start: 04-19-2021 Gender identity Identifies as female gender (finding) [facility] Start: 04-19-2021 Sexual orientation Heterosexual (fin ding) [facility] Start: 04-20-2023 Tobacco Comment 1/2 pack per day [facility] Clinical Notes 03-26-2018 to 04-20-2023 Jemma Boyle APRN.CNP - 04/20/2023 11:30 AM ESTPatient InstructionsTelephone Encounter - Teresa Love FIELD REPRESENTATIVE - 04/09/2023 7:19 AM Jemma Vaca APRN.CNP - 01/30/2023 1:57 PM EDTLaboratory Note Date & Type Note Facility 04-20-2023 Note HNO ID: [id number] Author: Jemma Boyle APRN.CNP Service: ? Author Type: Nurse Practitioner Type: Progress Notes Filed: 04/20/2023 11:44 AM Note Text: Kitchen Clerk offered: Patient declines. Collins presents today for IUD insertion for contraception. Patient's last menstrual period was 01/07/2023 (approximate). GC/chlamydia: Negative on 01/30/23 test: negative Side effects including irregular bleeding were discussed with the patient. The patient understands that it should be removed in 5 years or sooner if the patient desires a . IUD source: office provided IUD lot #: [id number] Exp date: 04/09/2025 UNIVERSAL PROTOCOL / SAFETY CHECKLIST Procedure to be Performed: Insertion of Kyleena IUD Sign In: A Moment of CARE was completed. Personnel directly involved with the procedure wore the appropriate PPE (Personal Protective Equipment). Patient/Surrogate Stated/Verified: PATIENT VERIFIED(optional for EMERGENT procedures): Patient name, Date of , Relevant allergies, and The intended procedure Time Out Communication: Intended patient and procedure match the source documents. Consent documented and matches the intended procedure. Sign Out: SIGN OUT (optional for EMERGENT procedures): No specimen collected. All instruments, equipment, possible retained foreign bodies accounted for. Post-procedure follow-up management communicated and Plan of Care Visit completed when applicable. The cervix was prepped with betadine. The uterus sounded to 8 cm and the uterus is Anteverted.. Using sterile technique, the Kyleena IUD was inserted without difficulty and the string was cut to 2cm from the external os of the cervix. Patient tolerated procedure well. PLAN: Patient was advised to observe for signs and symptoms of infection including but not limited to fever, malodorous vaginal discharge and/or pain. The patient was told to check the string monthly for accurate placement. Bleeding expectations were reviewed. Follow up in one month. Jemma Boyle APRN.CNP [facility] 04-20-2023 History of Presen t illness Narrative Kitchen Clerk offered: Patient declines. Karina presents today for IUD insertion for contraception. Patient's last menstrual period was 01/07/2023 (approximate). GC/chlamydia: Negative on 01/30/23 test: negative Side effects including irregular bleeding were discussed with the patient. The patient understands that it should be removed in 5 years or sooner if the patient desires a . IUD source: office provided IUD lot #: [id number] Exp date: 04/09/2025 UNIVERSAL PROTOCOL / SAFETY CHECKLIST Procedure to be Performed: Insertion of Kyleena IUD Sign In: A Moment of CARE was completed. Personnel directly involved with the procedure wore the appropriate PPE (Personal Protective Equipment). Patient/Surrogate Stated/Verified: PATIENT VERIFIED(optional for EMERGENT procedures): Patient name, Date of , Relevant allergies, and The intended procedure Time Out Communication: Intended patient and procedure match the source documents. Consent documented and matches the intended procedure. Sign Out: SIGN OUT (optional for EMERGENT procedures): No specimen collected. All instruments, equipment, possible retained foreign bodies accounted for. Post-procedure follow-up management communicated and Plan of Care Visit completed when applicable. The cervix was prepped with betadine. The uterus sounded to 8 cm and the uterus is Anteverted.. Using sterile technique, the Kyleena IUD was inserted without difficulty and the string was cut to 2cm from the external os of the cervix. Patient tolerated procedure well. PLAN: Patient was advised to observe for signs and symptoms of infection including but not limited to fever, malodorous vaginal discharge and/or pain. The patient was told to check the string monthly for accurate placement. Bleeding expectations were reviewed. Follow up in one month. Jemma Boyle APRN.RACHEL documented in this encounter [facility] 04-20-2023 Instructions RAFAL Garcia Laurie - 04/20/2023 10:27 AM EST POST IUD INSTRUCTIONS You may have irregular bleeding during the first 3 months of use. You may have mild-severe cramping for the next 48 hours. You may use over the counter medication (Motrin, Tylenol) as needed. Your IUD must be removed or replaced based on the following table: IUD Type Removed or replaced within: Pascale 3 years Kyleena 5 years Mirena 8 years Liletta 8 years Paragard 10 years Call the office for signs/symptoms of infection such as severe cramping, fever, or unusual bleeding. Check for string placement as instructed by your doctor. If you have any additional questions, please contact the office. documented in this encounter [facility] 04-09-2023 Miscellaneous Notes Patient had yearly exam 01/30/2023 w/ Vito Boyle documented in this encounter [facility] 03-10-2023 Miscellaneous Notes Patient has been identified by name and date of : Yes Last office visit in this department: 01/30/2023 RX INSTRUCTIONS: Patient aware RX will be sent to pharmacy. No need to notify patient. Patient phones requesting refills as follows: Patient is asking for a one month supply of BC due to pushing out IUD insert as she tested positive for Covid and is still sick. Requested Prescriptions Pending Prescriptions Disp Refills norgestimate 0.25 mg-ethinyl estradiol 35 mcg (SPRINTEC) 0.25-35 mg-mcg per tablet 28 tablet 0 Sig: TAKE 1 TABLET BY MOUTH DAILY Please review and advise. Chacha Sandhu documented in this encounter [facility] 01-30-2023 Note HNO ID: [id number] Author: Jemma Boyle APRN.AADC PLANS STAFF OFFICER Service: ? Author Type: Nurse Practitioner Type: Progress Notes Filed: 01/30/2023 2:45 PM Note Text: Karina is a 37 year old who presents for an annual gynecologic exam without complaints. Menses: cycles every 21-24 days and 4-5 days of flow. 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/2023 (Approximate), Having periods Age at Menarche: Age at First : Age at Menopause: Field Ironworker History Comments: Sexual Activity: Yes; Male Contraception: Pill PAST MEDICAL HISTORY Diagnosis Date Asthma COPD (chronic obstructive pulmonary disease) (HCC) Irregular menstrual cycle Irregular periods PAST SURGICAL HISTORY Procedure Laterality Date EXTRACTION ERUPTED TOOTH wisdom teeth IMPLANON REMOVAL 2014 INSERTION OF IUD 08/19/2010 mirena LAPAROSCOPY SURG CHOLECYSTECTOMY 03/29/2018 Cholecystectomy, lap PAST SURGICAL HISTORY OF Left 07/05/2018 plates and screws placed into cheek TONSILLECTOMY HX FAMILY HISTORY Problem Relation Age of Onset Thyroid Mother Arthritis Mother Cancer Father 60 throat- now lymphnode Systemic Lupus Erythematosus Sister COPD Paternal Grandmother Heart Paternal Grandmother other (negative) Other SOCIAL HISTORY Social History Tobacco Use Smoking status: Every Day Packs/day: 1.00 Years: 2.00 Additional pack years: 0.00 Total pack years: 2.00 Types: Cigarettes Start date: 03/26/2008 Smokeless tobacco: Never Tobacco comments: 1/2 pack per day Vaping Use Vaping Use: Former Substance Use Topics Alcohol use: Not Currently Drug use: No REVIEW OF SYSTEMS Abdomen: No abdominal pain, nausea, vomiting, diarrhea, or constipation. No bloating, early satiety, indigestion, or increased flatulence. Bladder: No dysuria, gross hematuria, urinary frequency, urinary urgency, or incontinence. Breast: No breast lumps, nipple d/c, overlying skin changes, redness or skin retraction. Allergies and current medication updated:Yes EXAM: BP 104/72 Wt 186 lb (84.4kg) LMP 01/07/2023 GENERAL: pleasant, female in no apparent distress HEENT: Normocephalic, atraumatic, mucus membranes moist, and no lesions NECK: Supple, full range of motion, no adenopathy, and thyroid normal DERMATOLOGY: Normal, without lesions, non-icteric, and non-hirsute BREAST: soft, non-tender, symmetric, no dominant mass, normal nipple-areolar complex, no lymphadenopathy, and no nipple discharge CHEST: Normal inspiratory effort ABDOMEN: soft, non-tender, and no masses PELVIC: external genitalia normal, normal Bartholin's glands, urethra, Catheys [place]'s glands, no vulvar lesions, no cervical lesions, physiologic discharge present, normal appearing perineal body and perianal region BIMANUAL: uterus normal size, shape and consistency, no adnexal masses, and non-tender RECTOVAGINAL: deferred. NEURO: alert and oriented x3,exam grossly non-focal EXTREMITIES: normal ASSESSMENT/PLAN: 1) Health maintenance: Pap done with HPV. Mammogram starting age 40. Nutrition, exercise and routine health maintenance exams reviewed. Calcium/Vitamin D supplementation information provided. 2) Contraception: IUD order- Kyleena. Contraceptive options reviewed and information provided. 3) STD screening: Accepted STD check for Gonorrhea and Chlamydia. 4) Follow up one year or sooner as needed Jemma Boyle APRN.[facility] 01-30-2023 History of Presen t illness Narrative Karina is a 37 year old who presents for an annual gynecologic exam without complaints. Menses: cycles every 21-24 days and 4-5 days of flow. 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/2023 (Approximate), Having periods Age at Menarche: Age at First : Age at Menopause: Field Ironworker History Comments: Sexual Activity: Yes; Male Contraception: Pill PAST MEDICAL HISTORY Diagnosis Date Asthma COPD (chronic obstructive pulmonary disease) (HCC) Irregular menstrual cycle Irregular periods PAST SURGICAL HISTORY Procedure Laterality Date EXTRACTION ERUPTED TOOTH wisdom teeth IMPLANON REMOVAL 2014 INSERTION OF IUD 08/19/2010 mirena LAPAROSCOPY SURG CHOLECYSTECTOMY 03/29/2018 Cholecystectomy, lap PAST SURGICAL HISTORY OF Left 07/05/2018 plates and screws placed into cheek TONSILLECTOMY HX FAMILY HISTORY Problem Relation Age of Onset Thyroid Mother Arthritis Mother Cancer Father 60 throat- now lymphnode Systemic Lupus Erythematosus Sister COPD Paternal Grandmother Heart Paternal Grandmother other (negative) Other SOCIAL HISTORY Social History Tobacco Use Smoking status: Every Day Packs/day: 1.00 Years: 2.00 Additional pack years: 0.00 Total pack years: 2.00 Types: Cigarettes Start date: 03/26/2008 Smokeless tobacco: Never Tobacco comments: 1/2 pack per day Vaping Use Vaping Use: Former Substance Use Topics Alcohol use: Not Currently Drug use: No REVIEW OF SYSTEMS Abdomen: No abdominal pain, nausea, vomiting, diarrhea, or constipation. No bloating, early satiety, indigestion, or increased flatulence. Bladder: No dysuria, gross hematuria, urinary frequency, urinary urgency, or incontinence. Breast: No breast lumps, nipple d/c, overlying skin changes, redness or skin retraction. Allergies and current medication updated:Yes EXAM: BP 104/72 Wt 186 lb (84.4kg) LMP 01/07/2023 GENERAL: pleasant, female in no apparent distress HEENT: Normocephalic, atraumatic, mucus membranes moist, and no lesions NECK: Supple, full range of motion, no adenopathy, and thyroid normal DERMATOLOGY: Normal, without lesions, non-icteric, and non-hirsute BREAST: soft, non-tender, symmetric, no dominant mass, normal nipple-areolar complex, no lymphadenopathy, and no nipple discharge CHEST: Normal inspiratory effort ABDOMEN: soft, non-tender, and no masses PELVIC: external genitalia normal, normal Bartholin's glands, urethra, [place]athe[place]'s glands, no vulvar lesions, no cervical lesions, physiologic discharge present, normal appearing perineal body and perianal region BIMANUAL: uterus normal size, shape and consistency, no adnexal masses, and non-tender RECTOVAGINAL: deferred. NEURO: alert and oriented x3,exam grossly non-focal EXTREMITIES: normal ASSESSMENT/PLAN: 1) Health maintenance: Pap done with HPV. Mammogram starting age 40. Nutrition,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 Only (Routine) - Pending Review Specialty Diagnoses / Procedures Referred By Denise choudhury Referred To Contact XR IMAGING Diagnoses Pain in joint, multiple sites Procedures XR CERV GENERAL 2V AP/LAT RADEX SPINE CERVICAL 2 OR 3 VIEWS Christiana Washington MD [address] [facility] [address] [place] [address] Xr Imaging Referral ID Status Reason Start Date Expiration Date Visits Requested Visits Authorized [id number] Pending Review Auto-Generat ed Referral 06/11/2022 07/11/2023 1 1 [facility] Outpatient Procedure (Routine) - Pending Review Specialty Diagnoses / Procedures Referred By Denise choudhury Referred To Contact [facility] Diagnoses Encounter for insertion of intrauterine contraceptive device (IUD) Procedures INSERT INTRAUTERINE DEVICE LEVONORGESTREL-RELEASING INTR CONTRACEPTIVE (KYLEENA), 19.5 MG INSERT INTRAUTERINE DEVICE Jemma Boyle APRN.CNP [address] [place] [address] [facility] [address] [place] [address] Referral ID Status Reason Start Date Expiration Date Visits Requested Visits Authorized [id number] Pending Review Auto-Generat ed Referral 01/30/2023 01/30/2024 1 1 [facility] Summary Purpose Family History No Family History Records FoundNo Family History Records FoundNo Family History Records FoundNo Family History Records FoundNo Family History Records Found Advance Directives No Advanced Directives Records FoundNo Advanced Directives Records FoundNo Advanced Directives Records FoundNo Advanced Directives Records FoundNo Advanced Directives Records Found Additional Source Comments INFORMATION SOURCE (unrecogn ized section and content) DATE CREATED AUTHOR AUTHOR'S ORGANIZ ATION 04/19/2018 [facility] DATE CREATED AUTHOR AUTHOR'S ORGANIZ ATION 11/08/2022 [facility] DATE CREATED AUTHOR AUTHOR'S ORGANIZ ATION 02/17/2023 [facility] ([place]) DATE CREATED AUTHOR AUTHOR'S ORGANIZ ATION 04/22/[address] [facility] Care Team (unrecognized sect ion and content) Doctor Naturopathic Relationship Specialty Start Date End Date Bushra Yun DO [address] [place] [address] PCP - General Family Practice 02/04/18 Doctor Naturopathic Relationship Specialty Start Date End Date Bushra Yun DO [address] [place] [address] PCP - General Family Medicine 02/04/18 Doctor Naturopathic Relationship Specialty Start Date End Date Bushra Yun DO [address] [place] [address] PCP - General Family Medicine 02/04/18 Doctor Naturopathic Relationship Specialty Start Date End Date Bushra Yun DO [address] [place] [address] PCP - General Family Medicine 02/04/18 Doctor Naturopathic Relationship Specialty Start Date End Date Bushra Yun DO [address] [place] [address] PCP - General Family Medicine 02/04/18 Doctor Naturopathic Relationship Specialty Start Date End Date Bushra Yun DO [address] [place] [address] PCP - General Family Medicine 02/04/18 Doctor Naturopathic Relationship Specialty Start Date End Date Bushra Yun DO [address] [place] [address] PCP - General Family Medicine 02/04/18 Doctor Naturopathic Relationship Specialty Start Date End Date Bushra Yun DO [address] [place] [address] PCP - General Family Medicine 02/04/18 Source Comments (unrecognize d section and content) In the event this informatio n is protected by the Federal Confidentiality of Alcohol and Drug Abuse Patient Records regulations: The Federal rules restrict any use of the information to criminally investigate or prosecute any alcohol or drug abuse patient.[facility] the event this information is protected by the Federal Confidentiality of Alcohol and Drug Abuse Patient Records regulations: The Federal rules restrict any use of the information to criminally investigate or prosecute any alcohol or drug abuse patient.[facility] the event this information is protected by the Federal Confidentiality of Alcohol and Drug Abuse Patient Records regulations: The Federal rules restrict any use of the information to criminally investigate or prosecute any alcohol or drug abuse patient.[facility] the event this information is protected by the Federal Confidentiality of Alcohol and Drug Abuse Patient Records regulations: The Federal rules restrict any use of the information to criminally investigate or prosecute any alcohol or drug abuse patient.[facility] the event this information is protected by the Federal Confidentiality of Alcohol and Drug Abuse Patient Records regulations: The Federal rules restrict any use of the information to criminally investigate or prosecute any alcohol or drug abuse patient.[facility] the event this information is protected by the Federal Confidentiality of Alcohol and Drug Abuse Patient Records regulations: The Federal rules restrict any use of the information to criminally investigate or prosecute any alcohol or drug abuse patient.[facility] the event this information is protected by the Federal Confidentiality of Alcohol and Drug Abuse Patient Records regulations: The Federal rules restrict any use of the information to criminally investigate or prosecute any alcohol or drug abuse patient.[facility] the event this information is protected by the Federal Confidentiality of Alcohol and Drug Abuse Patient Records regulations: The Federal rules restrict any use of the information to criminally investigate or prosecute any alcohol or drug abuse patient.[facility] the event this information is protected by the Federal Confidentiality of Alcohol and Drug Abuse Patient Records regulations: The Federal rules restrict any use of the information to criminally investigate or prosecute any alcohol or drug abuse patient.[facility] the event this information is protected by the Federal Confidentiality of Alcohol and Drug Abuse Patient Records regulations: The Federal rules restrict any use of the information to criminally investigate or prosecute any alcohol or drug abuse patient.[facility] Reason for Visit (unrecogniz ed section and content) Reason Comments Disability Claim Reason Comments Joint Pain Reason Comments No Show Reason Comments Yearly Exam Reason Onset Date Comments Opened In Error 03/10/2023 Reason Onset Date Comments Refill Request 03/10/2023 Reason Onset Date Comments Refill Request 04/09/2023 Reason Onset Date Comments Insertion Of IUD 04/20/2023 Specialty Diagnoses / Procedures Referred By Denise choudhury Referred To Contact [facility] Diagnoses Encounter for insertion of intrauterine contraceptive device (IUD) Procedures INSERT INTRAUTERINE DEVICE LEVONORGESTREL-RELEASING INTR CONTRACEPTIVE (KYLEENA), 19.5 MG INSERT INTRAUTERINE DEVICE Jemma Boyle APRN.RACHEL [address] [place] [address] [facility] [address] [place] [address] Referral ID Status Reason Start Date Expiration Date V isits Requested Visits Authorized [id number] Authorized 05/11/2022 05/10/2023 2 2 FOR RECORDS PERTAINING TO PATIENTS WHO ARE OR HAVE BEEN ENROLLED IN A CHEMICAL DEPENDENCY/SUBSTANCEABUSE PROGRAM, SOME INFORMATION MAY BE OMITTED. This clinical summary was aggregated from multiple sources. Caution should be exercised in using it in the provision of clinical care. This summary normalizes information from multiple sources, and as a consequence, information in this document may materially change the coding, format and clinical context of patient data. In addition, data may be omitted in some cases. CLINICAL DECISIONS SHOULD BE BASED ON THE PRIMARY CLINICAL RECORDS. [facility] [employer] provides no warranty or guarantee of the accuracy or completeness of information in this document.
[2023-07-13 14:00] VITALS: PULSE 78
--- NOTE | 2023-07-13 15:11 | ED.RN ---
The patient left without discharge papers and instructions.
[2023-07-13 15:15] VITALS: BP 00/00
== END 2023-07-13 15:16 | disposition home or self-care (01) ==
PROVIDERS: Emergency Provider Emergency Medicine; PCP Family Medicine; Visit Provider Emergency Medicine
DX: R82.71 Bacteriuria (principal); J44.9 Chronic obstructive pulmonary disease, unspecified; E88.89 Other specified metabolic disorders; R31.29 Other microscopic hematuria; E86.0 Dehydration; I89.0 Lymphedema, not elsewhere classified; E66.9 Obesity, unspecified; Z79.899 Other long term (current) drug therapy; F17.210 Nicotine dependence, cigarettes, uncomplicated
CPT/HCPCS: 80053; 81001; 85027; 99282

== ENCOUNTER 2024-05-07 21:55 | Emergency (ER) | payer MEDICAID, SELFPAY ==
[2024-05-07 21:56] VITALS: BP 119/90; PULSE 85; RESP 18; TEMP 35.8; O2SAT 97
--- NOTE | 2024-05-07 23:26 | ED.RN ---
pt states she is not waiting for room any longer. left with sister.
== END 2024-05-07 23:26 | disposition left against medical advice (07) ==
LOC: ED 23:28
PROVIDERS: PCP Family Medicine
DX: K08.89 Other specified disorders of teeth and supporting structures (principal); Z53.21 Procedure and treatment not carried out due to patient leaving prior to being seen by health care provider